=== PATIENT | male | born 1940 | race Caucasian/White ===

== ENCOUNTER → 2016-05-26 | Outpatient (CLI) | payer OTHER | LOC: BHFA 13:15 | PROVIDERS: ATTEND Internal Medicine Cardiovascular Disease | DX: I48.91 Unspecified atrial fibrillation (principal); I38 Endocarditis, valve unspecified; I10 Essential (primary) hypertension; I27.2 Other secondary pulmonary hypertension; I26.99 Other pulmonary embolism without acute cor pulmonale ==

== ENCOUNTER → 2016-07-08 | Outpatient (CLI) | payer OTHER | LOC: BHFA 14:45 | PROVIDERS: ATTEND Internal Medicine Interventional Cardiology | DX: I48.91 Unspecified atrial fibrillation (principal) ==

== ENCOUNTER 2016-07-27 13:11 | Emergency (ER) | payer OTHER ==
[2016-07-27 13:17] VITALS: TEMP 97.7
--- NOTE | 2016-07-27 13:23 | EDPHY ---
H & P Stated Complaint: in afib since last night/mild sob Time Seen by Provider: 07/27/16 13:20 - Personal History Current Tetanus/Diphtheria Vaccine: Yes - Medical/Surgical History Hx Asthma: No Hx Chronic Respiratory Disease: No Hx Diabetes: No Hx Cardiac Disease: Yes Hx Renal Disease: No Hx Cirrhosis: No Hx Alcoholism: No Hx HIV/AIDS: No Hx Splenectomy or Spleen Trauma: No Other PMH: afib/bladder cancer/neobladder - Social History Smoking Status: Former smoker Constitutional: Initial Vital Signs Temperature (C) 36.5 C 07/27/16 13:15 Heart Rate 90 07/27/16 13:15 Respiratory Rate 20 07/27/16 13:15 Blood Pressure 142/96 H 07/27/16 13:15 O2 Sat (%) 95 07/27/16 13:15 O2 Delivery Mode Room Air O2 (L/minute) 15 Allergies/Adverse Reactions: lisinopril Allergy (Verified 07/27/16 13:12) Itching Home Medications: Medication Instructions Recorded Aspirin 81mg (*) 07/27/16 Coreg 07/27/16 Fish Oil 07/27/16 Multaq 400 mg (*) 07/27/16 Norvasc 07/27/16 Valsartan 07/27/16 Medical Decision Making ED Course/Re-evaluation: CHIEF COMPLAINT: Atrial fibrillation last night HISTORY OF PRESENT ILLNESS: This patient is a 75 year old male with history of atrial fibrillation arriving today with his following a recurrent episode of afib onset last night around 1:00am, about 12 hours ago. He states has history of electrocardioversion for this, most recently 1-2 years ago. He states he played a full round of gold and had a "number of glasses of wine", a gin and tonic yesterday. He woke up early this morning "feeling funny" and a little short of breath. He stayed awake for about an hour to see if the feeling resolved, and was able to sleep fitfully the rest of the night. His checked his pulse and found it irregular. He called his cardiologists office, who suggested he take 400mg Multaq and follow up to the Emergency Department for symptoms unresolved by 13:00 today. He states these symptoms are similar to previous episodes of atrial fibrillation. He denies fever, chills, nausea, or other associated symptoms. He denies any traumatic precipitating event. He was previously on Eliquis following a provoked saddle PE, but discontinued it 1 month ago in favor of daily 81mg Aspirin. REVIEW OF SYSTEMS: A 10 point review of systems was performed and is negative with the exception of the elements mentioned in the history of present illness. PHYSICAL EXAM: HR, BP, O2 Sat, RR. Temp noted General Appearance: Alert, well hydrated, appropriate, and non-toxic appearing. Head: Atraumatic without scalp tenderness or obvious injury Eyes: Pupils equal, round, reactive to light and accommodation, EOMI, no trauma , no injection. Nose: Atraumatic, no rhinorrhea, clear. Throat: There is no erythema or exudates, no lesions, normal tonsils, mucus membranes moist. Neck: Supple, nontender, no lymphadenopathy. Respiratory: No retractions, no distress, no wheezes, and no accessory muscle use. Lungs are clear to auscultation bilaterally. Cardiovascular: Irregularly irregular heart rate. No murmurs, rubs, or gallops. Good capillary refill all extremities. Gastrointestinal: Abdomen is soft, nontender, non-distended, no masses, no rebound, no guarding, no peritoneal signs. Musculoskeletal: Normal active ROM of all extremities, atraumatic. Neurological: Alert, appropriate, and interactive. Non-focal neuro exam. Skin: No rashes, good turgor, no nodules on palpation. Past medical history: Prostate cancer, neobladder placement, atrial fibrillation status post electrocardioversion, idiopathic cardiomyopathy, pneumonia, hypertension Past surgical history: Nephrostomy exchange, neobladder placement Family history: Noncontributory. Social history: at bedside. Past medical history reviewed including admission from 12/28/10. DIAGNOSTICS/PROCEDURES/CRITICAL CARE TIME: 13:40 The 12 lead EKG was interpreted by myself. See hard copy and/or "tracemaster" electronic copy for interpretation. Atrial fibrillation, rate 106. 3:1 conversion. 14:10 Procedure: Conscious sedation. Indication: Cardioversion The patient is an appropriate candidate to tolerate procedural sedation. The patient's vitals signs and mental status are appropriate. The risks, benefits and alternatives of the sedation were discussed with the patient. The patient is ASA classification 1. The patient's Mallampati airway score was 1 and the patient did meet the 3-3-2 airway measurements. A time out was completed. The patient was sedated with 100mg IV Propofol. The patient was monitored with continuous pulse oximetry, monitor technician and end tidal CO2. There were no complications and no significant hypoxemia. I performed both the sedation and the procedure. The total time I spent at the bedside during the procedural sedation was 15 minutes. The patient was examined after the procedural sedation and has returned to their pre-sedation baseline with normal vital signs and a normal examination. 14:12 Procedure: Electrical Cardioversion. Indication: Dysrhythmia. Risks, benefits, alternatives discussed with the patient and consent obtained. The patient was on a continuous secured entrance monitor, with airway equipment at the bedside. The patient was on continuous pulse oximetry and passive CO2 monitor. The cardioversion was performed with 150 joules biphasic current. The cardioversion was successful. The patient tolerated the procedure well with no complications. The procedure was performed by myself. 14:15 The 12 lead EKG was interpreted by myself. See hard copy and/or "tracemaster" electronic copy for interpretation. Sinus rhythm, bradycardic rate 52. Critical care time spent by me, Dr. Gil, exclusively with this patient was 40 minutes, exclusive of PA time and exclusive of procedures. The organ system at risk was cardiovascular and we did electrocardioversion under conscious sedation to prevent worsening of the patients condition. DIFFERENTIAL DIAGNOSIS: The differential diagnosis for the patient's shortness of breath included but was not limited to myocardial infarction, atrial fibrillation, and pulmonary embolus. MEDICAL DECISION MAKING: This patient is a 75 year old male with history of atrial fibrillation. He presents with a 12 hour history of presumed atrial fibrillation. He has had three previous episodes of atrial fibrillation, which were corrected with electrocardioversion. He has taken 400mg PO Multaq at home today following consult with his cardiologists office, but continues in atrial fibrillation. Exam is largely unremarkable with the exception of irregularly irregular heartbeat. Vitals otherwise normal. 13:[address] Gunter, master steam yacht. He is aware of the patient's symptoms and recommends electrocardioversion. Patient does not require an echocardiogram because onset of symptoms clearly began 12 hours ago. He is under the time threshold for risk of blood clot and subsequent stroke. 14:12 Electrocardioversion performed under conscious sedation. Sinus rhythm regained, rate 52. Sinus bradycardia likely due to Multaq. We will not give additional medication to control heart rate since he has already taken 400mg PO Multaq. He will be discharged home in good condition. He is to follow up with his master steam yacht this week. Return precautions discussed. The patient and his are comfortable with this plan. - Data Points Laboratory Results: Laboratory Results 07/27/16 13:55 07/27/16 13:55 07/27/16 07/27/16 13:55 13:55 WBC 6.28 10^3/uL 10^3/uL (3.80-9.50) RBC 5.73 10^6/uL 10^6/uL (4.40-6.38) Hgb 18.0 g/dL H g/dL (13.7-17.5) Hct 52.4 % H % (40.0-51.0) MCV 91.4 fL fL (81.5-99.8) MCH 31.4 pg pg (27.9-34.1) MCHC 34.4 g/dL g/dL (32.4-36.7) RDW 12.4 % % (11.5-15.2) Plt Count 148 10^3/uL L 10^3/uL (150-400) MPV 11.3 fL fL (8.7-11.7) Neut % (Auto) 53.6 % % (39.3-74.2) Lymph % (Auto) 29.9 % % (15.0-45.0) [place] % (Auto) 14.0 % H % (4.5-13.0) Eos % (Auto) 1.6 % % (0.6-7.6) Baso % (Auto) 0.6 % % (0.3-1.7) Nucleat RBC Rel Count 0.0 % % (0.0-0.2) Absolute Neuts (auto) 3.36 10^3/uL 10^3/uL (1.70-6.50) Absolute Lymphs (auto) 1.88 10^3/uL 10^3/uL (1.00-3.00) Absolute Monos (auto) 0.88 10^3/uL H 10^3/uL (0.30-0.80) Absolute Eos (auto) 0.10 10^3/uL 10^3/uL (0.03-0.40) Absolute Basos (auto) 0.04 10^3/uL 10^3/uL (0.02-0.10) Absolute Nucleated RBC 0.00 10^3/uL 10^3/uL (0-0.01) Immature Gran % 0.3 % % (0.0-1.1) Immature Gran # 0.02 10^3/uL 10^3/uL (0.00-0.10) Sodium 140 mEq/L mEq/L (134-144) Potassium 4.8 mEq/L mEq/L (3.5-5.2) Chloride 107 mEq/L mEq/L (97-110) Carbon Dioxide 25 mEq/l mEq/l (22-31) Anion Gap 8 mEq/L mEq/L (8-16) BUN 23 mg/dL mg/dL (7-23) Creatinine 1.2 mg/dL mg/dL (0.7-1.3) Estimated GFR 59 Glucose 91 mg/dL mg/dL (70-100) Calcium 9.1 mg/dL mg/dL (8.5-10.4) Magnesium 2.1 mg/dL mg/dL (1.6-2.3) Troponin I < 0.012 ng/mL ng/mL (0-0.034) NT-Pro-B Natriuret Pep 1740 pg/mL H pg/mL (0-450) Departure - Departure Disposition: Home, Routine, Self-Care Clinical Impression: Atrial fibrillation Qualifiers: Atrial fibrillation type: paroxysmal Qualified Code(s): I48.0 - Paroxysmal atrial fibrillation Condition: Good Instructions: A-fib (Atrial Fibrillation) (ED) Additional Instructions: Follow up with your master steam yacht this week. Return to the ED for chest pain, shortness of breath, recurrence of symptoms, or any other worsening of condition. Be sure to continue your daily 81mg aspirin. Referrals: Daja Farris MD [Medical Doctor] - As per Instructions Report Scribed for: Sergey Gil Report Scribed by: Marcela Zuñiga Date of Report: 07/27/16 Time of Report: 15:49
--- NOTE | 2016-07-27 13:42 | CPEKG ---
Heart Rate: 106 RR Interval: 566 QRSD Interval: 88 QT Interval: 340 QTC Interval: 452 QRS [place]: -27 T Wave [place]: 41 EKG Severity - ABNORMAL ECG - EKG Impression: ATRIAL FIBRILLATION EKG Impression: BORDERLINE LEFT AXIS DEVIATION EKG Impression: CONSIDER ANTEROSEPTAL INFARCT Electronically Signed By: Anusha Clarke 27-Jul-2016 15:22:39
[2016-07-27] MEDS ORDERED: PROPOFOL 200 MG/20 ML VIAL ONE (13:57)
[2016-07-27 14:02] LABS: % IMMATURE GRANULYOCYTES 0.3 % (0.0-1.1); ABSOLUTE IMMATURE GRANULOCYTES 0.02 10^3/uL (0.00-0.10); ADD DIFF? NO; ADD MORPH? NO; ADD SCAN? NO; ATYPICAL LYMPHOCYTE FLAG 10 (0-99); FRAGMENT RBC FLAG 0 (0-99); HEMATOCRIT 52.4 % (40.0-51.0); LEFT SHIFT FLG 10 (0-99); LIPEMIA HEMOLYSIS FLAG 90 (0-99); MEAN CELL HEMOGLOBIN 31.4 pg (27.9-34.1); MEAN CELL HEMOGLOBIN CONCENTR. 34.4 g/dL (32.4-36.7); MEAN CELL VOLUME 91.4 fL (81.5-99.8); MEAN PLATELET VOLUME 11.3 fL (8.7-11.7); PLATELET CLUMPS FLAG 10 (0-99); PLATELET COUNT 148 10^3/uL (150-400); RED BLOOD CELL COUNT 5.73 10^6/uL (4.40-6.38); RED CELL DISTRIBUTION WIDTH 12.4 % (11.5-15.2)
[2016-07-27 14:15] LABS: ANION GAP 8 mEq/L (8-16); CALCIUM 9.1 mg/dL (8.5-10.4); CARBON DIOXIDE 25 mEq/l (22-31); CHLORIDE 107 mEq/L (97-110); CREATININE 1.2 mg/dL (0.7-1.3); GLOMERULAR FILTRATION RATE 59; GLUCOSE 91 mg/dL (70-100); MAGNESIUM 2.1 mg/dL (1.6-2.3); POTASSIUM 4.8 mEq/L (3.5-5.2); SODIUM 140 mEq/L (134-144)
--- NOTE | 2016-07-27 14:20 | CPEKG ---
Heart Rate: 52 RR Interval: 1154 P-R Interval: 188 QRSD Interval: 94 QT Interval: 432 QTC Interval: 402 P [place]: 59 QRS [place]: -26 T Wave [place]: 12 EKG Severity - ABNORMAL ECG - EKG Impression: SINUS RHYTHM EKG Impression: BORDERLINE LEFT AXIS DEVIATION EKG Impression: ABNRM R PROG, CONSIDER ASMI OR LEAD PLACEMENT Electronically Signed By: Anusha Clarke 27-Jul-2016 15:22:39
[2016-07-27 14:25] LABS: TROPONIN I < 0.012 ng/mL (0-0.034)
[2016-07-27 14:38] VITALS: BP 116/70; PULSE 52; RESP 16; O2SAT 94
== END 2016-07-27 14:43 | disposition home or self-care (01) ==
DX: I48.0 Paroxysmal atrial fibrillation (principal); I10 Essential (primary) hypertension; Z79.82 Long term (current) use of aspirin; Z85.51 Personal history of malignant neoplasm of bladder; Z87.891 Personal history of nicotine dependence
CPT/HCPCS: 92960; 93005; 99291; J2704

== ENCOUNTER → 2016-07-29 | Outpatient (CLI) | payer OTHER | LOC: BHFA 15:00 | PROVIDERS: ATTEND Internal Medicine Cardiovascular Disease | DX: I48.0 Paroxysmal atrial fibrillation (principal); I10 Essential (primary) hypertension ==

== ENCOUNTER 2016-12-22 09:10 | Day surgery (SDC) | payer OTHER ==
[2016-12-22] MEDS ORDERED: NS 500 ML IV ONE (09:15)
[2016-12-22] MEDS ORDERED: fentaNYL 100 MCG/2 ML INJ IVP ONE (09:15)
[2016-12-22] MEDS ORDERED: ATROPINE SULFATE 1 MG/10 ML SYR IVP ONE (09:15)
[2016-12-22] MEDS ORDERED: BENZOCAINE UNIT DOSE SPRAY HURRICAINE MM ONE (09:15)
[2016-12-22] MEDS ORDERED: MIDAZOLAM 2 MG/2 ML VIAL IVP ONE (09:15)
--- NOTE | 2016-12-22 09:28 | CPEKG ---
Heart Rate: 102 RR Interval: 588 QRSD Interval: 92 QT Interval: 352 QTC Interval: 459 QRS [place]: -27 T Wave [place]: 47 EKG Severity - ABNORMAL ECG - EKG Impression: ATRIAL FIBRILLATION, V-RATE 70-142 EKG Impression: BORDERLINE LEFT AXIS DEVIATION EKG Impression: ABNRM R PROG, CONSIDER ASMI OR LEAD PLACEMENT Preliminary Awaiting MD Review
[2016-12-22 09:53] LABS: INR 1.16 (0.83-1.16); PROTIME(PATIENT) 14.8 SEC (12.0-15.0)
[2016-12-22 09:54] LABS: APTT 30.3 SEC (23.0-38.0)
[2016-12-22] MEDS ORDERED: PROPOFOL 200 MG/20 ML VIAL ONE (10:04)
[2016-12-22 10:06] LABS: ANION GAP 11 mEq/L (8-16); CALCIUM 9.2 mg/dL (8.5-10.4); CARBON DIOXIDE 23 mEq/l (22-31); CHLORIDE 109 mEq/L (97-110); CREATININE 1.3 mg/dL (0.7-1.3); GLOMERULAR FILTRATION RATE 53; GLUCOSE 106 mg/dL (70-100); POTASSIUM 4.7 mEq/L (3.5-5.2); SODIUM 143 mEq/L (134-144)
--- NOTE | 2016-12-22 10:21 | PDANEPAE ---
ANE History of Present Illness KEERTHI/CV A-fib ANE Past Medical History - Cardiovascular History Hx Hypertension: Yes Hx Arrhythmias: Yes Hx Coronary Artery / Peripheral Vascular Disease: No Hx CHF / Valvular Disease: No Cardiovascular History Comment: AFIB 3X CARDIOVERSION WORKS- HAD CARDIOVERSION LAST WEEK AT [facility] WILL REQUEST RECORDS HAPPENS WITH INFECTIONS - Pulmonary History Hx COPD: No Hx Asthma/Reactive Airway Disease: No Hx Recent Upper Respiratory Infection: No Hx Oxygen in Use at Home: No Hx Sleep Apnea: No - Neurologic History Hx Cerebrovascular Accident: No Hx Seizures: No Hx Dementia: No - Endocrine History Hx Diabetes: No Hypothyroid: No Hyperthyroid: No - Renal History Hx Renal Disorders: Yes Renal History Comment: BLADDER CA. HX OF BLADDER INFECTION LEADING TO SEPSIS- CURRENTLY ON ABX - Liver History Hx Hepatic Disorders: No - Neurological & Psychiatric Hx Hx Neurological and Psychiatric Disorders: No - Cancer History Hx Cancer: Yes Cancer History Comment: BLADDER CA IN 2010 - Congenital Disorder History Hx Congenital Disorders: No - GI History Hx Gastrointestinal Disorders: Yes Gastrointestinal History Comment: DIVERTICULOSIS - Other Health History Other Health History: PICC LINE IN [facility] CURRENTLY RECIEVING IV ABX - Chronic Pain History Chronic Pain: No - Surgical History Prior Surgeries: CYSTOSCOPY 2010. CARDIOVERSION 2010. CARDIOVERSION JULY 2013. LAP TRE 02/2012 ANE Review of Systems Review of Systems: - Exercise capacity METS (RN): 3 METS ANE Patient History - Allergies Allergies/Adverse Reactions: lisinopril Allergy (Verified 07/27/16 13:12) Itching - Home Medications Home Medications: Aspirin 81mg (*) 07/27/16 [Last Taken 1 Day Ago ~12/21/16] Coreg 07/27/16 [Last Taken 12/22/16] Fish Oil 07/27/16 [Last Taken Unknown] Multaq 400 mg (*) 07/27/16 [Last Taken Unknown] Norvasc 07/27/16 [Last Taken 12/22/16] Valsartan 07/27/16 [Last Taken 1 Day Ago ~12/21/16] Eliquis 5 mg PO BID 12/22/16 [Last Taken 12/22/16] - Anes Hx Anes Hx: no prior problems - Smoking Hx Smoking Status: Former smoker (Two daily) - Alcohol Use Alcohol Use: Other - Family Anes Hx Family Hx Anesthesia Complications: NONE ANE Labs/Vital Signs - Labs Result Diagrams: 12/22/16 09:30 - Vital Signs Height: 185.42 cm Weight: 89.358 kg ANE Physical Exam - Airway Neck exam: decreased ROM Mallampati Score: Class 3 Mouth exam: normal dental/mouth exam - Pulmonary Pulmonary: no respiratory distress - Cardiovascular Cardiovascular: irregularly irregular - ASA Status ASA Status: III ANE Anesthesia Plan Anesthesia Plan: MAC Total IV Anesthesia: Yes
--- NOTE | 2016-12-22 10:27 | PDHPUP ---
History & Physical Update H&P update statement: This history and physical update is based on an assessment of the patient which was completed after admission or registration (within 24 hours), but prior to the surgery/procedure. H&P update: H&P reviewed & patient examined, no change in patient's condition since H&P completed
--- NOTE | 2016-12-22 10:52 | CPEKG ---
Heart Rate: 64 RR Interval: 938 P-R Interval: 174 QRSD Interval: 100 QT Interval: 428 QTC Interval: 442 P [place]: 0 QRS [place]: -30 T Wave [place]: 24 EKG Severity - ABNORMAL ECG - EKG Impression: SINUS RHYTHM EKG Impression: LEFT AXIS DEVIATION EKG Impression: ABNRM R PROG, CONSIDER ASMI OR LEAD PLACEMENT Preliminary Awaiting MD Review
--- NOTE | 2016-12-22 11:21 | PDTEE1 ---
KEERTHI Cardioversion Procedure Procedure: electrical cardioversion, transesophageal echo Indications: atrial fibrillation Consent: signed and in chart Anticoagulation: eliquis Procedural Details: Pads were placed in anterior-posterior position. KEERTHI probe was advanced and standard images obtained. There is no evidence of left atrial or left atrial appendage thrombus. Synchronized cardioversion attempt #1: 200J Results: normal sinus rhythm Conclusions: successful KEERTHI cardioversion Patient Problems: Problems Problem Status Onset Atrial fibrillation Acute
--- NOTE | 2016-12-22 12:04 | ECHO ---
[email or web address] [address] [address] Main: [phone] Fax: Transesophageal Echocardiography Name: BRANDY TYLER MR#: [id number] Study Date: 12/22/2016 Study Time: 10:17 AM Date of : 1940 Age: 76 year(s) Height: ( ) Weight: ( ) BSA: Gender: Male Examination: KEERTHI Indication: pre-cardioversion; r/o clot Image Quality: Adequate Contrast: I.V. dose of agitated saline Requested by: Edwar Ugarte Heart Rate: Rhythm: Atrial fibrillation BP: / Procedure Staff Slag Expander: Angela Bland Physician: Edwar Ugarte Requesting Provider: KEERTHI Exam Details Contrast: I.V. dose of agitated saline Conclusions: Moderate left atrial enlargment. No thrombus identified. No contra-indications to cardioversion identified. Measurements: Chambers Valvular Assessment AV/MV Valvular Assessment TV/PV Normal Normal Normal Name Value Range Name Value Range Name Value Range Additional Measurements: Additional Vessels Name Value Ao Ascendin.7 cm Findings: Left Ventricle: Normal size left ventricle. Mildly reduced systolic LV function. Right Ventricle: Normal size right ventricle. Normal RV function. Left Atrium: The left atrium is moderately dilated. An agitated saline study was performed and was negative for Patient: BRANDY TYLER Study Date: 12/22/2016 Page 1 of 2 10:17 AM intracardiac shunting. Spontaneous contrast in the left atrium. No thrombus is noted in the left atrium. Left Atrial Appendage: No thrombus in left appendage. Spontaneous contrast is present in the left atrial appendage. Right Atrium: The right atrium is moderately dilated. Definite Chiari's network in right atrium. Mitral Valve: The mitral valve is normal in appearance. Mild mitral valve regurgitation is present. Aortic Valve: The aortic valve is tri-leaflet. Moderate aortic valve regurgitation is present. Tricuspid Valve: The tricuspid valve appears normal. Mild tricuspid regurgitation is present. Pulmonic Valve: The pulmonic valve is normal in appearance and function. Trivial pulmonic valve regurgitation. l1n (No Signature Object) Patient: BRANDY TYLER Study Date: 12/22/2016 Page 2 of 2 10:17 AM [id number]
== END 2016-12-22 11:51 | disposition home or self-care (01) ==
LOC: FCATH 09:10
PROVIDERS: ATTEND Internal Medicine Interventional Cardiology
PROC: B245ZZ4 Ultrasonography of Left Heart, Transesophageal (ICD-10-PCS; principal; 2016-12-22)
PROC: 5A2204Z Restoration of Cardiac Rhythm, Single (ICD-10-PCS; principal; 2016-12-22)
DX: I48.91 Unspecified atrial fibrillation (principal); I10 Essential (primary) hypertension; I38 Endocarditis, valve unspecified; R31.9 Hematuria, unspecified
CPT/HCPCS: J0461; J2704

== ENCOUNTER → 2017-01-16 | Outpatient (CLI) | payer OTHER | LOC: BHFA 14:00 | PROVIDERS: ATTEND Internal Medicine Cardiovascular Disease | DX: I48.91 Unspecified atrial fibrillation (principal) | CPT/HCPCS: 78452; 93017; A9500 ==

== ENCOUNTER 2017-06-17 06:33 | Day surgery (SDC) | payer OTHER ==
[2017-06-17] MEDS ORDERED: fentaNYL 100 MCG/2 ML INJ IVP ONE (06:37)
[2017-06-17] MEDS ORDERED: NS 500 ML IV ONE (06:37)
[2017-06-17] MEDS ORDERED: ATROPINE SULFATE 1 MG/10 ML SYR IVP ONE (06:37)
[2017-06-17] MEDS ORDERED: MIDAZOLAM 2 MG/2 ML VIAL IVP ONE (06:37)
--- NOTE | 2017-06-17 06:56 | CPEKG ---
Heart Rate: 103 RR Interval: 583 QRSD Interval: 94 QT Interval: 360 QTC Interval: 471 QRS [place]: -25 T Wave [place]: 48 EKG Severity - ABNORMAL ECG - EKG Impression: ATRIAL FIBRILLATION, V-RATE 64-106 EKG Impression: BORDERLINE LEFT AXIS DEVIATION EKG Impression: ABNRM R PROG, CONSIDER ASMI OR LEAD PLACEMENT Electronically Signed By: Bassam Philippe 17-Jun-2017 07:37:28
[2017-06-17 07:16] LABS: INR 1.1 (0.83-1.16); PROTIME(PATIENT) 14.4 SEC (12.0-15.0)
--- NOTE | 2017-06-17 08:11 | PDANEPAE ---
ANE History of Present Illness paroxysmal episodes of atrial fibrillation ANE Past Medical History - Cardiovascular History Hx Hypertension: Yes Hx Arrhythmias: Yes Hx Coronary Artery / Peripheral Vascular Disease: No Hx CHF / Valvular Disease: No Cardiovascular History Comment: AFIB 3X CARDIOVERSION WORKS- HAD CARDIOVERSION LAST WEEK AT [facility] WILL REQUEST RECORDS HAPPENS WITH INFECTIONS - Pulmonary History Hx COPD: No Hx Asthma/Reactive Airway Disease: No Hx Recent Upper Respiratory Infection: No Hx Oxygen in Use at Home: No Hx Sleep Apnea: No - Neurologic History Hx Cerebrovascular Accident: No Hx Seizures: No Hx Dementia: No - Endocrine History Hx Diabetes: No - Renal History Hx Renal Disorders: Yes Renal History Comment: BLADDER CA. HX OF BLADDER INFECTION LEADING TO SEPSIS- CURRENTLY ON ABX - Liver History Hx Hepatic Disorders: No - Neurological & Psychiatric Hx Hx Neurological and Psychiatric Disorders: No - Cancer History Hx Cancer: Yes Cancer History Comment: BLADDER CA IN 2010 - Congenital Disorder History Hx Congenital Disorders: No - GI History Hx Gastrointestinal Disorders: Yes Gastrointestinal History Comment: DIVERTICULOSIS - Other Health History Other Health History: PICC LINE IN [facility] CURRENTLY RECIEVING IV ABX - Chronic Pain History Chronic Pain: No - Surgical History Prior Surgeries: CYSTOSCOPY 2010. CARDIOVERSION 2010. CARDIOVERSION JULY 2013. LAP TRE 02/2012 ANE Review of Systems Review of Systems: ANE Patient History - Allergies Allergies/Adverse Reactions: lisinopril Allergy (Verified 07/27/16 13:12) Itching nitrofurazone Allergy (Verified 06/17/17 07:00) - Home Medications Home Medications: Coreg 07/27/16 [Last Taken 06/17/17 06:00] Fish Oil 07/27/16 [Last Taken 06/15/17 08:00] Norvasc 07/27/16 [Last Taken 06/17/17 06:00] Valsartan 07/27/16 [Last Taken 06/16/17 08:30] Eliquis 5 mg PO BID 12/22/16 [Last Taken 06/17/17 06:00] - Smoking Hx Smoking Status: Former smoker - Family Anes Hx Family Hx Anesthesia Complications: NONE ANE Labs/Vital Signs - Labs Result Diagrams: 06/17/17 07:05 - Vital Signs Height: 185.42 cm Weight: 87.543 kg ANE Physical Exam - Airway Neck exam: FROM, short neck Mallampati Score: Class 1 Mouth exam: normal dental/mouth exam - Pulmonary Pulmonary: no respiratory distress, no rales or rhonchi, clear to auscultation - Cardiovascular Cardiovascular: irregularly irregular - ASA Status ASA Status: III ANE Anesthesia Plan Anesthesia Plan: GA with mask
[2017-06-17] MEDS ORDERED: PROPOFOL 200 MG/20 ML VIAL ONE ×2 (08:12→08:13)
--- NOTE | 2017-06-17 08:55 | CPEKG ---
Heart Rate: 51 RR Interval: 1176 P-R Interval: 200 QRSD Interval: 92 QT Interval: 452 QTC Interval: 417 P [place]: 59 QRS [place]: -30 T Wave [place]: 11 EKG Severity - ABNORMAL ECG - EKG Impression: SINUS RHYTHM EKG Impression: LEFT AXIS DEVIATION EKG Impression: ABNRM R PROG, CONSIDER ASMI OR LEAD PLACEMENT Electronically Signed By: Bassam Philippe 17-Jun-2017 11:29:38
--- NOTE | 2017-06-17 08:55 | PDTEE1 ---
KEERTHI Cardioversion Procedure Procedure: electrical cardioversion, transesophageal echo Indications: atrial fibrillation Consent: signed and in chart Anticoagulation: eliquis Procedural Details: Sedation was provided by Dr. Maldonado. Pads were placed in anterior-posterior position. KEERTHI probe was advanced and standard images obtained. 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 He will be referred for a Watchman evaluation in the [facility] structural heart clinic. Patient Problems: Problems Problem Status Onset Atrial fibrillation Acute
[2017-06-17] MEDS ORDERED: NALOXONE HCL 0.4 MG/ML INJ IVP PRN (08:58)
--- NOTE | 2017-06-17 08:58 | POSTANESTH ---
Post Anesthetic Evaluation Cardiovascular Status: Normal, Stable Respiratory Status: Normal, Stable, Similar to Pre-op Cond. Level of Consciousness/Mental Status: Can Participate in Eval Pain Control: Adequate, Prn Tx Ordered Nausea/Vomiting Control: Adequate, Prn Tx Ordered Complications Possibly Related to Anesthesia: None Noted
--- NOTE | 2017-06-17 10:38 | ECHO ---
[email or web address] [address] [address] Main: [phone] Fax: Transesophageal Echocardiography Name: BRANDY TYLER MR#: [id number] Study Date: 06/17/2017 Study Time: 08:18 AM Date of : 1940 Age: 76 year(s) Height: ( ) Weight: ( ) BSA: Gender: Male Examination: KEERTHI Indication: Pre Cardioversion Image Quality: Contrast: Requested by: Daja Farris Heart Rate: Rhythm: BP: / Procedure Staff Surg Tech: Bhavin Georges RDCS Reading Physician: Daja Farris MD Requesting Provider: Dirk Oconnor KEERTHI Exam Details Conclusions: Normal global systolic LV function. An agitated saline study was performed and was negative for intracardiac shunting. Spontaneous contrast in the left atrium. Good color flow doppler in the left atrial appendage. No thrombus in left appendage. FLOR Measurements ([employer]) 0 degrees Width 15.5mm Length 24.6mm, 45 degrees Width 16.4 mm length 25.7mm, 90 degrees Width 12.1mm length 26.0mm, 135 degrees width 11.8mm length 19.0 mm. Mild mitral valve regurgitation is present. Mild aortic valve regurgitation is present. Proceed with cardioversion Measurements: Chambers Valvular Assessment AV/MV Valvular Assessment TV/PV Normal Normal Normal Name Value Range Name Value Range Name Value Range Additional Measurements: Findings: Left Ventricle: Normal global systolic LV function. Left Atrium: Patient: BRANDY TYLER Study Date: 06/17/2017 Page 1 of 2 08:18 AM An agitated saline study was performed and was negative for intracardiac shunting. Spontaneous contrast in the left atrium. Left Atrial Appendage: Good color flow doppler in the left atrial appendage. No thrombus in left appendage. Spontaneous contrast is present in the left atrial appendage. FLOR Measurements (Watchman) 0 degrees Width 15.5mm Length 24.6mm, 45 degrees Width 16.4 mm length 25.7mm, 90 degrees Width 12.1mm length 26.0mm, 135 degrees width 11.8mm length 19.0 mm. Right Atrium: The right atrium is normal in size. Mitral Valve: The mitral valve is normal in appearance and function. Mild mitral valve regurgitation is present. Aortic Valve: The aortic valve is tri-leaflet. Mild aortic valve regurgitation is present. Tricuspid Valve: Trivial tricuspid valve regurgitation. Pulmonic Valve: The pulmonic valve is normal in appearance and function. Aorta: The aorta is normal. Pericardium: No pericardial effusion. l1n (No Signature Object) Patient: BRANDY TYLER Study Date: 06/17/2017 Page 2 of 2 08:18 AM [id number]
== END 2017-06-17 13:00 | disposition home or self-care (01) ==
LOC: FCATH 06:33
PROVIDERS: ATTEND Internal Medicine Cardiovascular Disease
PROC: 5A2204Z Restoration of Cardiac Rhythm, Single (ICD-10-PCS; principal; 2017-06-17)
PROC: B245ZZ4 Ultrasonography of Left Heart, Transesophageal (ICD-10-PCS; principal; 2017-06-17)
DX: I48.1 Persistent atrial fibrillation (principal); Z79.01 Long term (current) use of anticoagulants; R31.0 Gross hematuria; Z85.51 Personal history of malignant neoplasm of bladder; Z90.6 Acquired absence of other parts of urinary tract
CPT/HCPCS: J0461; J2250; J2704

== ENCOUNTER 2017-08-12 08:44 | Inpatient (IN) | payer OTHER ==
--- NOTE | 2017-08-12 11:15 | CPEKG ---
Heart Rate: 119 RR Interval: 504 QRSD Interval: 90 QT Interval: 336 QTC Interval: 473 QRS [place]: -21 T Wave [place]: 57 EKG Severity - ABNORMAL ECG - EKG Impression: ATRIAL FIBRILLATION WITH RAPID VENTRICULAR RESPONSE EKG Impression: BORDERLINE LEFT AXIS DEVIATION Electronically Signed By: Milton Hassan 12-Aug-2017 12:00:29
[2017-08-12 12:11] LABS: PLATELET COUNT 151 10^3/uL (150-400)
[2017-08-12 12:19] LABS: INR 1.02 (0.83-1.16); PROTIME(PATIENT) 13.6 SEC (12.0-15.0)
[2017-08-12] MEDS: SOTALOL HCL 80 MG TAB PO SCH ×2 (13:01→21:01)
--- NOTE | 2017-08-12 15:07 | CPEKG ---
Heart Rate: 80 RR Interval: 750 QRSD Interval: 86 QT Interval: 384 QTC Interval: 443 QRS [place]: -23 T Wave [place]: 22 EKG Severity - ABNORMAL ECG - EKG Impression: ATRIAL FIBRILLATION EKG Impression: BORDERLINE LEFT AXIS DEVIATION Electronically Signed By: Milton Hassan 12-Aug-2017 15:14:55
--- NOTE | 2017-08-12 15:57 | GHP ---
[f rep st] HISTORY AND PHYSICAL DATE OF ADMISSION: 08/12/2017 CHIEF COMPLAINT: Atrial fibrillation, need for sotalol load. HISTORY OF PRESENT ILLNESS: The patient is a 76-year-old male, well known to me from the outpatient setting. He has a history of paroxysmal atrial fibrillation and systemic hypertension. He has had s everal T-guided cardioversions over the past few years. He has also been evaluated for a left atrial appendage Watchman device, given his propensity for hematuria in the setting of his ureteral stent t hat requires frequent replacements. His last cardioversion was on June 17. He had been doing well and had been on Eliquis. On August 11, kim leonard had a colonoscopy for which he had to hold his Eliquis for 2 days. The evening of his colonoscopy, he went back into atrial fibrillation and is now being admitted electively for sotalol loading, give n his multiple failed cardioversions and recurrent symptomatic atrial fibrillation. He has received 1 dose of sotalol. He reports feeling fairly well with mild palpitations, but no ang batsheva or dyspnea. PAST MEDICAL HISTORY: 1. Paroxysmal atrial fibrillation. 2. Bladder cancer with ureteral stent. 3. Kidney stones. 4. Diverticulosis. 5. Hypertension. 6. Hematuria. 7. History of pulmonary embolism. 8. Pulmonary hypertension. 9. Valvular heart disease. ALLERGIES: Lisinopril and nitrofurantoin. OUTPATIENT MEDICATIONS: 1. Carvedilol 6.25 mg twice daily. 2. Amlodipine 5 mg daily. 3. Eliquis 5 mg twice daily. 4. Vitamin D3 herbal supplement. 5. Multivitamin. 6. Diovan 160 mg daily. 7. Ambien 5 mg at bedtime p.r.n. insomnia. SOCIAL HISTORY: The patient is . He does use alcohol on a regular basis. He does not smoke currently, but smoked in the past. FAMILY HISTORY: Not applicable to the current case. PHYSICAL EXAM: VITAL SIGNS: Blood pressure is 118/68, heart rate is 115 in atrial fibrillation, res piratory rate is 30, oxygen saturation 96% on room air. He is afebrile. GENERAL: Well-appearing ol [place] male in no acute distress. HEENT: Sclerae are clear and free of jaundice. Mucous membranes are moist. CARDIOVASCULAR: JVP is less than 10. Irregularly irregular rhythm without murmur, S3, or r ub. LUNGS: Clear to auscultation without wheezes, rhonchi or rales. EXTREMITIES: Warm, well perfu sed without cyanosis, clubbing, or edema. NEURO: Alert and oriented x3 without gross focal neurolog ic deficits. Appropriate mood and affect. LABORATORY DATA: White count is essentially normal except for hemoglobin that is slightly elevated a t 17.6. INR is 1.0. Sodium 141, potassium 4.7, chloride 110, bicarb 21, BUN 20, creatinine 1.2, and glucose of 102. Magnesium is 2. EKG reviewed by me shows atrial fibrillation with ventricular response of 119 beats per minute. QTcF is 422. ASSESSMENT AND PLAN: A 76-year-old male with recurrent paroxysmal atrial fibrillation and multiple p ast cardioversions. He is now admitted electively for sotalol loading. 1. Atrial fibrillation: Sotalol per protocol. Continue surveillance EKGs, follow renal function an d magnesium. Stop Coreg. Continue Eliquis for CHADS2-VASc score of 3. If he is not converted with s otalol by this 4th dose, will perform cardioversion. Would favor KEERTHI-guided cardioversion given that he had to his Eliquis for 2 days prior to his colonoscopy, although clinically has had not had atria l fibrillation until yesterday evening, and now is back on Eliquis. 2. Hypertension: Continue outpatient medical therapy with Norvasc and Diovan. May need to increase Diovan now that he will be off Coreg. 3. Valvular heart disease: This will be followed by serial outpatient echocardiograms. 4. Hematuria: This has been mild and ongoing. His urologist is aware of this. Patient will require at least 2 midnight stay given initiation of antiarrhythmic drug therapy with so talol. Therefore, he is inpatient status. Code status is full. /[id number]/MODL
[2017-08-12] MEDS: APIXABAN 5 MG TAB PO SCH (21:01)
[2017-08-12] MEDS: ZOLPIDEM TARTRATE 5 MG TAB PO PRN (21:55)
--- NOTE | 2017-08-12 23:01 | CPEKG ---
Heart Rate: 89 RR Interval: 674 QRSD Interval: 88 QT Interval: 396 QTC Interval: 482 QRS [place]: -22 T Wave [place]: 49 EKG Severity - ABNORMAL ECG - EKG Impression: ATRIAL FIBRILLATION, V-RATE 60-112 EKG Impression: BORDERLINE LEFT AXIS DEVIATION EKG Impression: PROBABLE ANTEROSEPTAL INFARCT, OLD EKG Impression: BORDERLINE PROLONGED QT INTERVAL Electronically Signed By: Gabriella Black 13-Aug-2017 05:10:08
[2017-08-13 05:10] LABS: INR 1.12 (0.83-1.16); PROTIME(PATIENT) 14.6 SEC (12.0-15.0)
[2017-08-13] MEDS: CHOLECALCIFEROL VIT D3 1,000 UNITS TAB PO SCH (08:06)
[2017-08-13] MEDS: amLODIPine BESYLATE 5 MG TAB PO SCH (08:06)
[2017-08-13] MEDS: VALSARTAN 160 MG TAB PO SCH (08:06)
[2017-08-13] MEDS: MULTIVITAMINS W-MINERALS 1 EACH TAB PO SCH (08:06)
[2017-08-13] MEDS: APIXABAN 5 MG TAB PO SCH ×2 (08:06→21:16)
[2017-08-13] MEDS: SOTALOL HCL 80 MG TAB PO SCH ×2 (09:34→21:15)
--- NOTE | 2017-08-13 11:26 | PDCARPN ---
Cardiology Progress Note Assessment/Plan: Assessment/plan: 76-year-old male with paroxysmal atrial fibrillation status post multiple KEERTHI guided cardioversions. He is now admitted for sotalol loading for recurrent atrial fibrillation. Sotalol has improved his ventricular response. Coreg has been stopped. He is on Eliquis for CHADS2 Vasc score of 3. 1. Atrial fibrillation: QT and electrolytes as well as renal function have been stable. He is due for 1 more loading dose of sotalol. If he is not in sinus rhythm tomorrow morning, we will plan on KEERTHI guided cardioversion. He does require a KEERTHI as he did have interruption Eliquis therapy for a recent colonoscopy. 2. Hypertension: Well controlled here. We will have to follow this closely because Coreg has been discontinued. May need increase in Diovan. 3. Valvular heart disease with mild mitral regurgitation mild aortic regurgitation: Stable 4. History of bladder cancer with ureteral stent that needs changing every several weeks with Dr. Ortega. He does have ongoing and mild hematuria related to Eliquis. His urologist is aware of this and cleared him to continue anticoagulation. 08/13/17 11:27 Subjective: He feels well. With rate control his palpitations have improved. No angina, dyspnea or presyncope. Reviewed/Discussed With: family Objective: Vital Signs (8 Hrs) Temp Pulse Resp BP Pulse Ox 08/13/17 07:55 36.4 C 98 22 H 133/89 H 95 08/13/17 04:00 36.9 C 85 16 127/75 H 95 Intake/Output (24 Hrs) 08/12/17 08/13/17 08/14/17 05:59 05:59 05:59 Intake Total 850 Balance 850 Intake: Oral (ml) 850 IV Intake (ml) 0 Other: Weight 88.3 kg Number of Stools Toilet 1 No acute distress. Irregular regular rhythm. No murmur, S3 or rub. Lungs clear to auscultation bilaterally No lower extremity edema Result Diagrams: 08/12/17 12:00 08/13/17 04:30 EKG: Reviewed: Atrial fibrillation with controlled ventricular response. QTCf is within normal limits. Telemetry: Atrial fibrillation with controlled ventricular response. Occasional PVCs. ICD10 Worksheet Patient Problems: Problems Problem Status Onset Atrial fibrillation Acute
--- NOTE | 2017-08-13 11:40 | CPEKG ---
Heart Rate: 78 RR Interval: 769 QRSD Interval: 94 QT Interval: 412 QTC Interval: 470 QRS [place]: 10 T Wave [place]: 53 EKG Severity - ABNORMAL ECG - EKG Impression: ATRIAL FIBRILLATION EKG Impression: ABNRM R PROG, CONSIDER ASMI OR LEAD PLACEMENT Electronically Signed By: Milton Hassan 13-Aug-2017 13:56:04
--- NOTE | 2017-08-13 14:52 | ASMTCMCOM ---
CM Note CM Note Notes: Chart reviewed. Patient is a very pleasant 76 year old male admitted for Sotolol therapy for atrial fib. He shares with me that he and his life in [place] and enjoy helping to care for 10 grandchildren. Patient states they manage fine independently and have no needs. No current needs identifed.CM available should needs arise. Plan: home Independently. Date Signed: 08/13/2017 02:52 PM Electronically Signed By:Ana Tirado RN
--- NOTE | 2017-08-13 15:01 | PDMN ---
Medical Necessity Medical necessity: los>2mn for recurrent paroxysmal afib; admit for initiation of antiarrhythmic drug therapy with sotalol, serial ECG's and monitor renal function and Mg; possible cardioversion if not converted by 4th dose; comorbid bladder ca with mild and ongoing hematuria, htn and valvular heart disease, hx PE; per order and H&P 06/13/17
[2017-08-13] MEDS: ZOLPIDEM TARTRATE 5 MG TAB PO PRN (22:32)
--- NOTE | 2017-08-13 23:15 | CPEKG ---
Heart Rate: 84 RR Interval: 714 QRSD Interval: 96 QT Interval: 428 QTC Interval: 507 QRS [place]: -25 T Wave [place]: 48 EKG Severity - ABNORMAL ECG - EKG Impression: ATRIAL FIBRILLATION EKG Impression: BORDERLINE LEFT AXIS DEVIATION Electronically Signed By: Milton Hassan 14-Aug-2017 07:35:36
[2017-08-14 04:24] LABS: INR 1.12 (0.83-1.16); PROTIME(PATIENT) 14.6 SEC (12.0-15.0)
[2017-08-14] MEDS ORDERED: ATROPINE SULFATE 1 MG/10 ML SYR IVP ONE (06:00)
[2017-08-14] MEDS ORDERED: NS 1,000 ML IV ONE (06:00)
[2017-08-14] MEDS: APIXABAN 5 MG TAB PO SCH (08:53)
[2017-08-14] MEDS: amLODIPine BESYLATE 5 MG TAB PO SCH (08:53)
[2017-08-14] MEDS: CHOLECALCIFEROL VIT D3 1,000 UNITS TAB PO SCH (08:53)
[2017-08-14] MEDS: VALSARTAN 160 MG TAB PO SCH (08:53)
[2017-08-14] MEDS: MULTIVITAMINS W-MINERALS 1 EACH TAB PO SCH (08:56)
[2017-08-14] MEDS ORDERED: SOTALOL HCL 80 MG TAB PO SCH (09:00)
--- NOTE | 2017-08-14 10:58 | CPEKG ---
Heart Rate: 104 RR Interval: 577 QRSD Interval: 90 QT Interval: 380 QTC Interval: 500 QRS [place]: -21 T Wave [place]: -15 EKG Severity - ABNORMAL ECG - EKG Impression: ATRIAL FIBRILLATION EKG Impression: BORDERLINE LEFT AXIS DEVIATION EKG Impression: ABNRM R PROG, CONSIDER ASMI OR LEAD PLACEMENT EKG Impression: BORDERLINE T ABNORMALITIES, INFERIOR LEADS Electronically Signed By: Milton Hassan 14-Aug-2017 12:57:37
[2017-08-14 11:49] VITALS: BP 119/84
--- NOTE | 2017-08-14 13:48 | PDANEPAE ---
ANE History of Present Illness 76 year old with AF ANE Past Medical History - Cardiovascular History Hx Hypertension: Yes Hx Arrhythmias: Yes Hx Coronary Artery / Peripheral Vascular Disease: No Hx CHF / Valvular Disease: No Cardiovascular History Comment: AFIB 3X CARDIOVERSION WORKS- HAD CARDIOVERSION LAST WEEK AT [facility] WILL REQUEST RECORDS HAPPENS WITH INFECTIONS - Pulmonary History Hx COPD: No Hx Asthma/Reactive Airway Disease: No Hx Recent Upper Respiratory Infection: No Hx Oxygen in Use at Home: No Hx Sleep Apnea: No - Neurologic History Hx Cerebrovascular Accident: No Hx Seizures: No Hx Dementia: No - Endocrine History Hx Diabetes: No - Renal History Hx Renal Disorders: Yes Renal History Comment: BLADDER CA. HX OF BLADDER INFECTION LEADING TO SEPSIS- CURRENTLY ON ABX - Liver History Hx Hepatic Disorders: No - Neurological & Psychiatric Hx Hx Neurological and Psychiatric Disorders: No - Cancer History Hx Cancer: Yes Cancer History Comment: BLADDER CA IN 2010 - Congenital Disorder History Hx Congenital Disorders: No - GI History Hx Gastrointestinal Disorders: Yes Gastrointestinal History Comment: DIVERTICULOSIS - Other Health History Other Health History: PICC LINE IN [facility] [place] CURRENTLY RECIEVING IV ABX - Chronic Pain History Chronic Pain: No - Surgical History Prior Surgeries: CYSTOSCOPY 2010. CARDIOVERSION 2010. CARDIOVERSION JULY 2013. LAP TRE 02/2012 ANE Review of Systems Review of systems is: negative Review of Systems: ANE Patient History - Allergies Allergies/Adverse Reactions: lisinopril Allergy (Verified 07/27/16 13:12) Itching nitrofurazone Allergy (Verified 08/12/17 13:15) Fever - Home Medications Home medications: home medication list seen and reviewed Home Medications: Carvedilol [Coreg (*)] 6.25 mg PO BID #0 07/27/16 [Last Taken 08/12/17] Valsartan [Diovan (*)] 160 mg PO DAILY #0 07/27/16 [Last Taken 08/12/17] amLODIPine BESYLATE [Norvasc 5 mg (*)] 5 mg PO DAILY #0 07/27/16 [Last Taken ] Apixaban [Eliquis] 5 mg PO BID #0 12/22/16 [Last Taken 08/12/17] Cholecalciferol Vit D3 [Vitamin D3 (*)] 1,000 units PO DAILY 08/12/17 [Last Taken Unknown] Herbals/Supplements -Info Only 1 ea PO DAILY 08/12/17 [Last Taken Unknown] Multivitamins W-Minerals [Thera M Plus Tablet (*)] 1 each PO DAILY 08/12/17 [ Last Taken Unknown] Zolpidem Tartrate [Ambien 5MG (*)] 5 mg PO HS PRN 08/12/17 [Last Taken Unknown] - NPO status NPO Status: no food or drink >8 hours - Smoking Hx Smoking Status: Former smoker - Family Anes Hx Family Hx Anesthesia Complications: NONE ANE Labs/Vital Signs - Labs Result Diagrams: 08/12/17 12:00 08/14/17 03:43 - Vital Signs Blood Pressure: 119/84 Heart Rate: 91 Respiratory Rate: 15 O2 Sat (%): 95 Height: 185.42 cm Weight: 88.3 kg ANE Physical Exam - Airway Neck exam: FROM Mallampati Score: Class 2 Mouth exam: normal dental/mouth exam - Pulmonary Pulmonary: no respiratory distress - Cardiovascular Cardiovascular: regular rate and rhythym - ASA Status ASA Status: II ANE Anesthesia Plan Anesthesia Plan: MAC Total IV Anesthesia: Yes
[2017-08-14] MEDS ORDERED: ATROPINE SULFATE 1 MG/10 ML SYR ONE (14:00)
[2017-08-14] MEDS ORDERED: fentaNYL 100 MCG/2 ML INJ ONE (14:00)
[2017-08-14] MEDS ORDERED: PROPOFOL 200 MG/20 ML VIAL ONE (14:00)
--- NOTE | 2017-08-14 14:18 | PDTEE1 ---
KEERTHI Cardioversion Procedure Procedure: electrical cardioversion, transesophageal echo Indications: atrial fibrillation Consent: signed and in chart Anticoagulation: eliquis Procedural Details: Sedation provided by Dr. Gay. Pads were placed in anterior-posterior position. KEERTHI probe was advanced and standard images obtained. There is no evidence of left atrial or left atrial appendage thrombus. Synchronized cardioversion attempt #1: 200J Results: other (Sinus bradycardia) Conclusions: successful KEERTHI cardioversion Patient Problems: Problems Problem Status Onset Atrial fibrillation Acute
--- NOTE | 2017-08-14 14:22 | CPEKG ---
Heart Rate: 41 RR Interval: 1463 P-R Interval: 196 QRSD Interval: 98 QT Interval: 488 QTC Interval: 403 P [place]: 59 QRS [place]: -29 T Wave [place]: 14 EKG Severity - ABNORMAL ECG - EKG Impression: SINUS BRADYCARDIA EKG Impression: LEFT ATRIAL ENLARGEMENT EKG Impression: BORDERLINE LEFT AXIS DEVIATION EKG Impression: ABNRM R PROG, CONSIDER ASMI OR LEAD PLACEMENT Electronically Signed By: Milton Hassan 15-Aug-2017 04:13:43
--- NOTE | 2017-08-14 14:25 | POSTANESTH ---
Post Anesthetic Evaluation Cardiovascular Status: Normal, Stable Respiratory Status: Normal, Stable Level of Consciousness/Mental Status: Can Participate in Eval Pain Control: Adequate, Prn Tx Ordered Nausea/Vomiting Control: Adequate, Prn Tx Ordered Complications Possibly Related to Anesthesia: None Noted
--- NOTE | 2017-08-14 14:28 | ASMTLACE ---
LACE Length of stay for Answers: 1 day current admission Acuity / Level of Answers: Yes Care: Did the patient have an inpatient admission? Comorbidities - select Answers: Any tumor (including all that apply lymphoma or leukemia) Other Notes: afib, HTN, diverticulos is, h/o PE, valvular heart disease # of Emergency department Answers: 0 visits in the last 6 months Score: 7 Date Signed: 08/14/2017 02:28 PM Electronically Signed By:Ana Tirado RN
--- NOTE | 2017-08-14 14:30 | ASMTCMCOM ---
CM Note CM Note Notes: Patient medically cleared for discharge to home. No needs identified CM available should needs arise. Plan: Home Independently. Date Signed: 08/14/2017 02:29 PM Electronically Signed By:Ana Tirado RN
--- NOTE | 2017-08-14 16:43 | GDS ---
[f rep st] DISCHARGE SUMMARY ADMISSION DIAGNOSES: 1. Paroxysmal atrial fibrillation status post multiple cardioversions and now need for sotalol loadi ng. 2. Hypertension. 3. Valvular heart disease with mild mitral, mild tricuspid regurgitation. 4. Bladder cancer with ureteral stent. DISCHARGE DIAGNOSES: 1. Atrial fibrillation, status post sotalol loading and successful transesophageal echocardiogram-gu ided cardioversion. 2. Hypertension. 3. Bladder cancer with history of urethral stent. 4. Valvular heart disease. PROCEDURES DURING HOSPITALIZATION: 1. EKGs for monitoring during sotalol initiation. 2. KEERTHI-guided cardioversion. HOSPITAL COURSE: The patient is a 76-year-old male with a long history of paroxysmal atrial fibrilla tion. He has had several KEERTHI-guided cardioversions over the past 3 years. He has also been evaluate d for left atrial appendage Watchman device given his propensity for hematuria in the setting of his ureteral stent that requires frequent replacements. At this point, he does not wish to have Watchman device. He went back into atrial fibrillation the evening after colonoscopy, August 11. He was therefore elec tively admitted on August 12 for sotalol initiation. This went without complication and his QTC inter areli remained below 480. He was slightly bradycardic and therefore his sotalol dose was decreased to 80 mg twice daily. He had no symptoms while in the hospital. Because the sotalol did not chemically convert him to normal sinus rhythm, he had a KEERTHI-guided cardio version on August 14. This converted him to sinus bradycardia. DISCHARGE PHYSICAL EXAM: GENERAL: No acute distress. CARDIAC: Pre-cardioversion exam showed irreg ularly irregular rhythm without murmur, S3, or rub. LUNGS: Clear to auscultation bilaterally withou t wheezes, rhonchi or rales. EXTREMITIES: Warm without edema. LABORATORY DATA: CBC was normal on admission. INR 1.12. Basic metabolic panel normal except for a BUN of 28. Magnesium has been normal. DISCHARGE MEDICATIONS: Please see medication reconciliation: His Coreg has been stopped. Sotalol 8 0 mg twice daily will be new medication. Otherwise, he will continue his Norvasc 5 mg daily, Eliquis 5 mg twice daily without interruption, and valsartan 160 mg. oHmer cason. DISCHARGE INSTRUCTIONS: 1. No driving for 24 hours as he received sedation for his KEERTHI-guided cardioversion. 2. Follow up with Dr. Farris or Shayne Zavala in 1 week with EKG. 3. Call for palpitations, chest pain or dyspnea. /[id number]/MODL
--- NOTE | 2017-08-14 16:52 | ECHO ---
[email or web address] [address] [address] Main: [phone] Fax: Transesophageal Echocardiography Name: BRANDY TYLER MR#: [id number] Study Date: 08/14/2017 Study Time: 01:47 PM Date of : 1940 Age: 76 year(s) Height: ( ) Weight: ( ) BSA: Gender: Male Examination: KEERTHI Indication: atrial fibrillation; pre-cardioversion Image Quality: Contrast: Requested by: Daja Farris Heart Rate: Rhythm: BP: / Procedure Staff Medical Social Worker: Angela Amin [facility] Reading Physician: Daja Farris MD Requesting Provider: KEERTHI Exam Details Conclusions: Normal global systolic LV function. The ejection fraction is visually estimated to be 55 %. No left atrial appendage thrombus. Good color flow doppler in the left atrial appendage. Mild mitral valve regurgitation is present. Mild aortic valve regurgitation is present. Mild tricuspid regurgitation is present. proceed with cardioversion Measurements: Chambers Valvular Assessment AV/MV Valvular Assessment TV/PV Normal Normal Normal Name Value Range Name Value Range Name Value Range Visual EF: 55 % Additional Measurements: Additional Vessels Name Value Ao Ascendin.6 cm Patient: BRANDY TYLER Study Date: 08/14/2017 Page 1 of 2 01:47 PM Findings: Left Ventricle: Normal global systolic LV function. The ejection fraction is visually estimated to be 55 %. Left Atrium: No left atrial appendage thrombus. Left Atrial Appendage: Good color flow doppler in the left atrial appendage. Normal PW-Doppler flow pattern. No thrombus in left appendage. Spontaneous contrast is present in the left atrial appendage. Mitral Valve: The mitral valve is normal in appearance and function. Mild mitral valve regurgitation is present. Aortic Valve: The aortic valve is tri-leaflet. Mild aortic valve regurgitation is present. Tricuspid Valve: Mild tricuspid regurgitation is present. Pulmonic Valve: Mild pulmonic valve regurgitation is noted. l1n (No Signature Object) Patient: BRANDY TYLER Study Date: 08/14/2017 Page 2 of 2 01:47 PM [id number]
== END 2017-08-14 15:35 | disposition home or self-care (01) | DRG 310 ==
LOC: UNDOADMIN 10:48 → F2W 10:48
PROVIDERS: ADMIT Internal Medicine Cardiovascular Disease; ATTEND Internal Medicine Cardiovascular Disease
PROC: 5A2204Z Restoration of Cardiac Rhythm, Single (ICD-10-PCS; principal; 2017-08-14)
PROC: B245ZZ4 Ultrasonography of Left Heart, Transesophageal (ICD-10-PCS; principal; 2017-08-14)
DX: I48.0 Paroxysmal atrial fibrillation (principal); I10 Essential (primary) hypertension; I08.1 Rheumatic disorders of both mitral and tricuspid valves; R31.9 Hematuria, unspecified; Z79.01 Long term (current) use of anticoagulants; Z85.51 Personal history of malignant neoplasm of bladder; Z90.6 Acquired absence of other parts of urinary tract; Z96.0 Presence of urogenital implants; Z86.711 Personal history of pulmonary embolism
CPT/HCPCS: J0461; J2704; J3010

== ENCOUNTER → 2017-08-17 | Outpatient (CLI) | payer OTHER | LOC: BHFA 13:00 | PROVIDERS: ATTEND Internal Medicine Cardiovascular Disease | DX: I48.91 Unspecified atrial fibrillation (principal); I10 Essential (primary) hypertension; I38 Endocarditis, valve unspecified; R31.9 Hematuria, unspecified ==

== ENCOUNTER → 2017-12-18 | Outpatient (CLI) | payer OTHER | LOC: BHCLAF 14:00 | PROVIDERS: ATTEND Internal Medicine Cardiovascular Disease | DX: I48.91 Unspecified atrial fibrillation (principal) | CPT/HCPCS: 93005-PO ==

== ENCOUNTER 2017-12-21 15:01 | Day surgery (SDC) | payer OTHER ==
[2017-12-21] MEDS ORDERED: NS 500 ML IV ONE (15:03)
[2017-12-21] MEDS ORDERED: MIDAZOLAM 2 MG/2 ML VIAL IVP ONE (15:03)
[2017-12-21] MEDS ORDERED: ATROPINE SULFATE 1 MG/10 ML SYR IVP ONE (15:03)
[2017-12-21] MEDS ORDERED: fentaNYL 100 MCG/2 ML INJ IVP ONE (15:03)
[2017-12-21] MEDS ORDERED: LIDOCAINE 1% 5 ML SDV ONE (15:35)
[2017-12-21] MEDS ORDERED: PROPOFOL 200 MG/20 ML VIAL ONE (15:35)
[2017-12-21] MEDS ORDERED: NALOXONE HCL 0.4 MG/ML INJ IVP PRN (15:45)
--- NOTE | 2017-12-21 15:45 | PDANEPAE ---
ANE History of Present Illness 77 year old male in A-fib for cardioversion. History of HTN, Pulm HTN, Bladder CA and PE. ANE Past Medical History - Cardiovascular History Hx Hypertension: Yes Hx Arrhythmias: Yes Hx Coronary Artery / Peripheral Vascular Disease: No Hx CHF / Valvular Disease: No Cardiovascular History Comment: AFIB 3X CARDIOVERSION WORKS- HAD CARDIOVERSION LAST WEEK AT [facility] WILL REQUEST RECORDS HAPPENS WITH INFECTIONS - Pulmonary History Hx COPD: No Hx Asthma/Reactive Airway Disease: No Hx Recent Upper Respiratory Infection: No Hx Oxygen in Use at Home: No Hx Sleep Apnea: No - Neurologic History Hx Cerebrovascular Accident: No Hx Seizures: No Hx Dementia: No - Endocrine History Hx Diabetes: No - Renal History Hx Renal Disorders: Yes Renal History Comment: BLADDER CA. HX OF BLADDER INFECTION LEADING TO SEPSIS- CURRENTLY ON ABX - Liver History Hx Hepatic Disorders: No - Neurological & Psychiatric Hx Hx Neurological and Psychiatric Disorders: No - Cancer History Hx Cancer: Yes Cancer History Comment: BLADDER CA IN 2010 - Congenital Disorder History Hx Congenital Disorders: No - GI History Hx Gastrointestinal Disorders: Yes Gastrointestinal History Comment: DIVERTICULOSIS - Other Health History Other Health History: PICC LINE IN [facility] CURRENTLY RECIEVING IV ABX - Chronic Pain History Chronic Pain: No - Surgical History Prior Surgeries: CYSTOSCOPY 2010. CARDIOVERSION 2010. CARDIOVERSION JULY 2013. LAP TRE 02/2012 ANE Review of Systems Review of systems is: negative Review of Systems: ANE Patient History - Allergies Allergies/Adverse Reactions: lisinopril Allergy (Verified 07/27/16 13:12) Itching nitrofurazone Allergy (Verified 08/12/17 13:15) Fever - Home Medications Home Medications: amLODIPine BESYLATE [Norvasc 5 mg (*)] 7.5 mg PO DAILY #0 07/27/16 [Last Taken 12/21/17 08:00] Apixaban [Eliquis] 5 mg PO BID #0 12/22/16 [Last Taken 12/21/17 07:30] Cholecalciferol Vit D3 [Vitamin D3 (*)] 1,000 units PO DAILY 08/12/17 [Last Taken 12/20/17 08:00] Herbals/Supplements -Info Only 1 ea PO DAILY 08/12/17 [Last Taken 12/20/17 08:00 ] Multivitamins W-Minerals [Thera M Plus Tablet (*)] 1 each PO DAILY 08/12/17 [ Last Taken 12/20/17 08:00] Zolpidem Tartrate [Ambien 5MG (*)] 5 mg PO HS PRN 08/12/17 [Last Taken 12/17/17 21:00] Irbesartan 150 mg PO DAILY 12/21/17 [Last Taken 12/20/17 08:00] Potassium Citrate ER 15 meq PO BID 12/21/17 [Last Taken 12/20/17 08:00] Taurine 1,000 mg PO DAILY 12/21/17 [Last Taken 12/21/17 08:00] - Smoking Hx Smoking Status: Former smoker - Family Anes Hx Family Hx Anesthesia Complications: NONE ANE Labs/Vital Signs - Vital Signs Height: 185.4 cm Weight: 92.1 kg ANE Physical Exam - Airway Neck exam: FROM Mallampati Score: Class 2 Mouth exam: normal dental/mouth exam - Pulmonary Pulmonary: no respiratory distress - Cardiovascular Cardiovascular: irregularly irregular - ASA Status ASA Status: III ANE Anesthesia Plan Anesthesia Plan: MAC
[2017-12-21 16:01] LABS: INR 1.22 (0.83-1.16); PROTIME(PATIENT) 15.6 SEC (12.0-15.0)
--- NOTE | 2017-12-21 16:15 | CPEKG ---
Test Reason : OPEN Blood Pressure : / mmHG Vent. Rate : 114 BPM Atrial Rate : 125 BPM P-R Int : 128 ms QRS Dur : 090 ms QT Int : 346 ms P-R-T Axes : 000 -10 044 degrees QTc Int : 477 ms Atrial fibrillation Ventricular premature complex Anteroseptal infarct, old Atrial fibrillation is new in comparison to prior (sinus bradycardia) Confirmed by Arden Gunter ([id number]) on 12/21/2017 4:15:32 PM Referred By: Confirmed By:Arden Gunter
--- NOTE | 2017-12-21 17:43 | CPR ---
DATE OF PROCEDURE: 12/21/2017 PROCEDURE PERFORMED: Direct current cardioversion. INDICATION FOR PROCEDURE: Symptomatic atrial fibrillation with rapid ventricular response. SUMMARY: The patient is a pleasant 77-year-old gentleman with a known history of paroxysmal atrial f ibrillation. He is currently on a rhythm control and anticoagulation strategy. He is currently on s otalol 40 mg p.o. b.i.d. Of note, he did undergo KEERTHI-guided cardioversion in June 2017. He states he has been compliant with Eliquis 5 mg p.o. b.i.d. since the time of his cardioversion in June. He is certain he has not missed any doses and is absolutely certain he has missed no doses of medicatio n over the 30 days leading up to his cardioversion. He developed a new onset of atrial fibrillation on evening. The rhythm has persisted, promp ting him to present today for cardioversion. After consents were obtained for cardioversion, as well as anesthesia, patient was sedated with propo fol. Once appropriate level of sedation was achieved, the patient received a single shock of [address] of biphasic synchronized energy with return to normal sinus rhythm. Patient tolerated the proced ure well. There were no postoperative complications. At the time of this dictation he is awaking from sedation. PLAN: 1. Continue Eliquis 5 mg p.o. b.i.d. 2. Continue sotalol 40 mg p.o. b.i.d. 3. Follow up with his primary script reader, Dr. Daja Farris. /[id number]/MODL
--- NOTE | 2017-12-22 16:39 | CPEKG ---
Test Reason : OPEN Blood Pressure : / mmHG Vent. Rate : 060 BPM Atrial Rate : 056 BPM P-R Int : 167 ms QRS Dur : 094 ms QT Int : 427 ms P-R-T Axes : 065 -24 023 degrees QTc Int : 427 ms Sinus rhythm Borderline left axis deviation Sinus rhythm has replaced atrial fibrillation noted on last ECG Confirmed by Arden Gunter ([id number]) on 12/22/2017 4:39:00 PM Referred By: Confirmed By:Arden Gunter
== END 2017-12-21 17:48 | disposition home or self-care (01) ==
LOC: FCATH 15:01
PROVIDERS: ATTEND Internal Medicine Cardiovascular Disease
PROC: 5A2204Z Restoration of Cardiac Rhythm, Single (ICD-10-PCS; principal; 2017-12-21)
DX: I48.91 Unspecified atrial fibrillation (principal); I10 Essential (primary) hypertension; I27.20 Pulmonary hypertension, unspecified; I08.0 Rheumatic disorders of both mitral and aortic valves; Z79.01 Long term (current) use of anticoagulants; Z85.51 Personal history of malignant neoplasm of bladder; Z86.711 Personal history of pulmonary embolism; Z87.891 Personal history of nicotine dependence; Z90.6 Acquired absence of other parts of urinary tract
CPT/HCPCS: J2250; J2704

== ENCOUNTER 2018-01-05 10:09 | Day surgery (SDC) | payer OTHER ==
[2018-01-05] MEDS ORDERED: MIDAZOLAM 2 MG/2 ML VIAL IVP ONE (10:10)
[2018-01-05] MEDS ORDERED: ATROPINE SULFATE 1 MG/10 ML SYR IVP ONE (10:10)
[2018-01-05] MEDS ORDERED: fentaNYL 100 MCG/2 ML INJ IVP ONE (10:10)
[2018-01-05] MEDS ORDERED: NS 500 ML IV ONE (10:10)
--- NOTE | 2018-01-05 11:03 | PDANEPAE ---
ANE Past Medical History - Cardiovascular History Hx Hypertension: Yes Hx Arrhythmias: Yes Hx Chest Pain: No Hx Coronary Artery / Peripheral Vascular Disease: No Hx CHF / Valvular Disease: No Hx Palpitations: Yes Cardiovascular History Comment: AFIB AND H/O MULTIPLE CARDIOVERSIONS - Pulmonary History Hx COPD: No Hx Asthma/Reactive Airway Disease: No Hx Recent Upper Respiratory Infection: No Hx Oxygen in Use at Home: No Hx Sleep Apnea: No - Neurologic History Hx Cerebrovascular Accident: No Hx Seizures: No Hx Dementia: No - Endocrine History Hx Diabetes: No Hypothyroid: No Hyperthyroid: No Obesity: no - Renal History Hx Renal Disorders: Yes Renal History Comment: BLADDER CA. HX OF BLADDER INFECTION LEADING TO SEPSIS- CURRENTLY ON ABX - Liver History Hx Hepatic Disorders: No - Neurological & Psychiatric Hx Hx Neurological and Psychiatric Disorders: No - Cancer History Hx Cancer: Yes Cancer History Comment: BLADDER CA IN 2010 - Congenital Disorder History Hx Congenital Disorders: No - GI History GERD: no Hx Gastrointestinal Disorders: Yes Gastrointestinal History Comment: DIVERTICULOSIS - Chronic Pain History Chronic Pain: No - Surgical History Prior Surgeries: CYSTOSCOPY 2010. CARDIOVERSION 2010. CARDIOVERSION JULY 2013. LAP TRE 02/2012 ANE Review of Systems Review of Systems: - Exercise capacity Exercise capacity: >=4 METS ANE Patient History - Allergies Allergies/Adverse Reactions: lisinopril Allergy (Verified 07/27/16 13:12) Itching nitrofurazone Allergy (Verified 08/12/17 13:15) Fever - Home Medications Home Medications: amLODIPine BESYLATE [Norvasc 5 mg (*)] 7.5 mg PO DAILY #0 07/27/16 [Last Taken 12/21/17 08:00] Apixaban [Eliquis] 5 mg PO BID #0 12/22/16 [Last Taken 12/21/17 07:30] Cholecalciferol Vit D3 [Vitamin D3 (*)] 1,000 units PO DAILY 08/12/17 [Last Taken 12/20/17 08:00] Herbals/Supplements -Info Only 1 ea PO DAILY 08/12/17 [Last Taken 12/20/17 08:00 ] Multivitamins W-Minerals [Thera M Plus Tablet (*)] 1 each PO DAILY 08/12/17 [ Last Taken 12/20/17 08:00] Zolpidem Tartrate [Ambien 5MG (*)] 5 mg PO HS PRN 08/12/17 [Last Taken 12/17/17 21:00] Irbesartan 150 mg PO DAILY 12/21/17 [Last Taken 12/20/17 08:00] Potassium Citrate ER 15 meq PO BID 12/21/17 [Last Taken 12/20/17 08:00] Taurine 1,000 mg PO DAILY 12/21/17 [Last Taken 12/21/17 08:00] - Anes Hx Anes Hx: no prior problems - Smoking Hx Smoking Status: Former smoker Marijuana use: No - Alcohol Use Alcohol Use: Occasionally - Family Anes Hx Family Anes Hx: neg - N/A Family Hx Anesthesia Complications: NONE ANE Labs/Vital Signs - Labs Result Diagrams: 01/05/18 10:30 ANE Physical Exam - Airway Neck exam: FROM Mallampati Score: Class 2 Mouth exam: normal dental/mouth exam - Pulmonary Pulmonary: no respiratory distress, no rales or rhonchi, clear to auscultation - Cardiovascular Cardiovascular: irregularly irregular - ASA Status ASA Status: II ANE Anesthesia Plan Anesthesia Plan: MAC Total IV Anesthesia: Yes
[2018-01-05 11:07] LABS: INR 0.99 (0.83-1.16); PROTIME(PATIENT) 13.3 SEC (12.0-15.0)
[2018-01-05] MEDS ORDERED: PROPOFOL 200 MG/20 ML VIAL ONE (11:11)
[2018-01-05] MEDS ORDERED: LIDOCAINE 2% 100 MG/5 ML SYR ONE (11:11)
--- NOTE | 2018-01-05 11:22 | PDHPUP ---
History & Physical Update H&P update statement: This history and physical update is based on an assessment of the patient which was completed after admission or registration (within 24 hours), but prior to the surgery/procedure. H&P update: H&P reviewed & patient examined, no change in patient's condition since H&P completed (Reviewed my office note dated 12/28/2017)
--- NOTE | 2018-01-05 11:44 | PDTEE1 ---
KEERTHI Cardioversion Procedure Procedure: electrical cardioversion Indications: atrial fibrillation Consent: signed and in chart Anticoagulation: eliquis Procedural Details: Pads were placed in anterior-posterior position. KEERTHI was not performed as the patient has been taking Eliquis uninterrupted for several weeks. Synchronized cardioversion attempt #1: 200J Results: normal sinus rhythm Conclusions: successful cardioversion Patient Problems: Problems Problem Status Onset Atrial fibrillation Acute
--- NOTE | 2018-01-05 11:53 | POSTANESTH ---
Post Anesthetic Evaluation Cardiovascular Status: Other, See Comment Respiratory Status: Normal, Stable Level of Consciousness/Mental Status: Can Participate in Eval Pain Control: Adequate, Prn Tx Ordered Nausea/Vomiting Control: Adequate, Prn Tx Ordered Complications Possibly Related to Anesthesia: None Noted (asymptomatic sinus bradycardia)
--- NOTE | 2018-01-07 09:19 | CPEKG ---
Test Reason : OPEN Blood Pressure : / mmHG Vent. Rate : 103 BPM Atrial Rate : 179 BPM P-R Int : 128 ms QRS Dur : 093 ms QT Int : 372 ms P-R-T Axes : 000 -27 049 degrees QTc Int : 487 ms Atrial fibrillation Ventricular premature complex Borderline left axis deviation Probable anteroseptal infarct, old Atrial fibrillation is new in comparison to prior Confirmed by Arden Gunter ([id number]) on 01/07/2018 9:18:46 AM Referred By: Confirmed By:Arden Gunter
--- NOTE | 2018-01-07 09:24 | CPEKG ---
Test Reason : OPEN Blood Pressure : / mmHG Vent. Rate : 046 BPM Atrial Rate : 046 BPM P-R Int : 182 ms QRS Dur : 098 ms QT Int : 479 ms P-R-T Axes : 066 -23 021 degrees QTc Int : 419 ms Sinus bradycardia Borderline left axis deviation Sinus bradycardia has replaced atrial fibrillation on prior Confirmed by Arden Gunter ([id number]) on 01/07/2018 9:23:36 AM Referred By: Confirmed By:Arden Gunter
== END 2018-01-05 13:10 | disposition home or self-care (01) ==
LOC: FCATH 10:09
PROVIDERS: ATTEND Internal Medicine Cardiovascular Disease
PROC: 5A2204Z Restoration of Cardiac Rhythm, Single (ICD-10-PCS; principal; 2018-01-05)
DX: I48.0 Paroxysmal atrial fibrillation (principal); I10 Essential (primary) hypertension; Z86.711 Personal history of pulmonary embolism; Z85.51 Personal history of malignant neoplasm of bladder
CPT/HCPCS: J2001; J2704

== ENCOUNTER → 2018-02-16 | Outpatient (CLI) | payer OTHER ==
[~2018-02-16] MED LIST: IOPAMIDOL (ISOVUE 370) 100 ML BTL IV ONE
== END ==
LOC: FIMAGING 12:57
PROVIDERS: ATTEND Internal Medicine Cardiovascular Disease
DX: I48.91 Unspecified atrial fibrillation (principal)
CPT/HCPCS: 75572; Q9967; 82565-PO

== ENCOUNTER 2018-02-22 11:41 | Observation (INO) | payer OTHER ==
[2018-02-22] MEDS ORDERED: IOPAMIDOL (ISOVUE-300) 100 ML BTL ONE (13:31)
[2018-02-22 13:45] LABS: PLATELET COUNT 120 10^3/uL (150-400)
[2018-02-22] MEDS ORDERED: cefOXitin SODIUM 2 GM in NS 100 ML IV ONE (13:51)
--- NOTE | 2018-02-22 13:52 | EDPHY ---
H & P Stated Complaint: constipation/rectal pain (severe) Time Seen by Provider: 02/22/18 12:47 HPI/ROS: CHIEF COMPLAINT: Rectal pain HISTORY OF PRESENT ILLNESS: The patient presents to the ED with complaints of rectal pain worsening over the past several days. He has been applying a compounded medication for the past several days without improvement of his symptoms. The patient denies any history of hemorrhoids but does report a history of a reported fungal infection in his perineal area which he had been prescribed the topical cream for in the past. The patient reports pain with attempted bowel movement. He denies symptoms of constipation. The patient is currently anticoagulated but denies any melena or hematemesis. REVIEW OF SYSTEMS: A comprehensive 10 point review of systems is otherwise negative aside from elements mentioned in the history of present illness. Source: Patient - Personal History Current Tetanus Diphtheria and Acellular Pertussis (TDAP): Yes - Medical/Surgical History Hx Asthma: No Hx Chronic Respiratory Disease: No Hx Diabetes: No Hx Cardiac Disease: Yes Hx Renal Disease: No Hx Cirrhosis: No Hx Alcoholism: No Hx HIV/AIDS: No Hx Splenectomy or Spleen Trauma: No Other PMH: afib/bladder cancer/neobladder - Social History Smoking Status: Former smoker - Physical Exam Exam: General Appearance: Alert, no distress Eyes: Pupils equal and round no pallor or injection ENT, Mouth: Mucous membranes moist Respiratory: There are no retractions, lungs are clear to auscultation Cardiovascular: Regular rate and rhythm Gastrointestinal: Abdomen is soft and nontender, no masses, bowel sounds normal Rectal exam: Palpable perirectal abscess noted Neurological: 5/5 strength noted all 4 extremities Skin: Warm and dry, no rashes Musculoskeletal: Neck is supple nontender Extremities: symmetrical, full range of motion Psychiatric: Patient is oriented X 3, there is no agitation Constitutional: Initial Vital Signs Temperature (C) 36.5 C 02/22/18 11:51 Heart Rate 72 02/22/18 11:51 Respiratory Rate 19 02/22/18 11:51 Blood Pressure 173/97 H 02/22/18 11:51 O2 Sat (%) 95 02/22/18 11:51 O2 Delivery Mode Room Air Allergies/Adverse Reactions: lisinopril Allergy (Verified 02/22/18 11:50) Itching nitrofurantoin [From Macrobid] Allergy (Verified 02/22/18 11:50) GI Upset Penicillins Allergy (Verified 02/22/18 11:50) GI Upset/Fever Home Medications: Medication Instructions Recorded amLODIPine BESYLATE [Norvasc 5 mg 5 mg PO DAILY #0 07/27/16 (*)] Apixaban [Eliquis] 5 mg PO BID #0 12/22/16 Cholecalciferol Vit D3 [Vitamin D3 1,000 units PO DAILY 08/12/17 (*)] Multivitamins W-Minerals [Thera M 1 each PO DAILY 08/12/17 Plus Tablet (*)] Zolpidem Tartrate [Ambien 5MG (*)] 5 mg PO HS PRN 08/12/17 Irbesartan [Avapro 150 mg (*)] 150 mg PO DAILY 12/21/17 Allopurinol [Allopurinol 300 MG 300 mg PO DAILY 02/16/18 (RX)] Colchicine [Colchicine (*)] 0.6 mg PO DAILY 02/16/18 Glucosamine Sulfate [Glucosamine 500 mg PO DAILY 02/16/18 Sulfate 500 MG (*)] Herbals/Supplements -Info Only 1 ea PO DAILY 02/16/18 [place]-3 Fatty Acids [Fish Oil 1000 1,000 mg PO DAILY 02/16/18 mg (*)] Omeprazole 20 mg PO DAILY 02/16/18 Sotalol HCl [Betapace 80 MG (*)] 40 mg PO BID 02/16/18 Hydrocodone/APAP 5/325 [[place] 1 - 2 tab PO Q4H 02/22/18 5/325 (*)] Medical Decision Making - Diagnostics Imaging Results: Imaging Impressions Pelvis CT 02/22/18 13:27 Impression: 1. 2 x 4 cm peripherally enhancing fluid collection posterior to the anus, suggesting abscess or phlegmon. 2. Inguinal adenopathy, which could be reactive. Consider follow-up CT pelvis in 3 months. 3. 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 4. Additional findings as above. Findings discussed with Dr. Davy Thomas on February 22, 2018 at 1441 hours. ED Course/Re-evaluation: The patient presents the emergency department with complaints of acute rectal pain. The patient is noted to have a perirectal abscess on exam. Patient had an IV established. He received a L normal saline in the emergency department. I consulted with Dr. Moreno from General surgery who evaluated the patient here. He will be admitted to the hospital for operative intervention. The patient is currently anticoagulated. Dr. Moreno did request that a CT scan of the pelvis be obtained. This was ordered with IV contrast. Differential Diagnosis: Differential diagnosis considered includes perirectal abscess, thrombosed external hemorrhoid, cellulitis, scrotal gangrene - Data Points Laboratory Results: Laboratory Results 02/22/18 13:22 02/22/18 13:22 02/22/18 02/22/18 02/22/18 13:22 13:22 13:19 WBC 8.96 10^3/uL 10^3/uL (3.80-9.50) RBC 5.10 10^6/uL 10^6/uL (4.40-6.38) Hgb 15.9 g/dL g/dL (13.7-17.5) POC Hgb 16.7 gm/dL gm/dL (13.7-17.5) Hct 48.7 % % (40.0-51.0) POC Hct 49 % % (40-51) MCV 95.5 fL fL (81.5-99.8) MCH 31.2 pg pg (27.9-34.1) MCHC 32.6 g/dL g/dL (32.4-36.7) RDW 13.2 % % (11.5-15.2) Plt Count 120 10^3/uL L 10^3/uL (150-400) MPV 12.1 fL H fL (8.7-11.7) Neut % (Auto) 72.1 % % (39.3-74.2) Lymph % (Auto) 14.6 % L % (15.0-45.0) [place] % (Auto) 11.3 % % (4.5-13.0) Eos % (Auto) 1.3 % % (0.6-7.6) Baso % (Auto) 0.3 % % (0.3-1.7) Nucleat RBC Rel Count 0.0 % % (0.0-0.2) Absolute Neuts (auto) 6.45 10^3/uL 10^3/uL (1.70-6.50) Absolute Lymphs (auto) 1.31 10^3/uL 10^3/uL (1.00-3.00) Absolute Monos (auto) 1.01 10^3/uL H 10^3/uL (0.30-0.80) Absolute Eos (auto) 0.12 10^3/uL 10^3/uL (0.03-0.40) Absolute Basos (auto) 0.03 10^3/uL 10^3/uL (0.02-0.10) Absolute Nucleated RBC 0.00 10^3/uL 10^3/uL (0-0.01) Immature Gran % 0.4 % % (0.0-1.1) Immature Gran # 0.04 10^3/uL 10^3/uL (0.00-0.10) POC Sodium 142 mEq/L mEq/L (135-145) Sodium 138 mEq/L mEq/L (135-145) POC Potassium 4.3 mEq/L mEq/L (3.3-5.0) Potassium 4.8 mEq/L mEq/L (3.5-5.2) POC Chloride 106 mEq/L mEq/L (97-110) Chloride 107 mEq/L mEq/L (97-110) Carbon Dioxide 22 mEq/l mEq/l (22-31) Anion Gap 9 mEq/L mEq/L (6-14) POC BUN 26 mg/dL H mg/dL (7-23) BUN 23 mg/dL mg/dL (7-23) Creatinine 1.0 mg/dL mg/dL (0.7-1.3) POC Creatinine 1.1 mg/dL mg/dL (0.7-1.3) Estimated GFR > 60 Glucose 82 mg/dL mg/dL (70-100) POC Glucose 85 mg/dL mg/dL (70-100) Calcium 8.7 mg/dL mg/dL (8.5-10.4) Specimen Hemolysis 136 Medications Given: Hydromorphone HCl (Dilaudid) 0.2 - 0.4 mg IVP Q1HR PRN PRN Reason: Pain, Breakthrough Stop: 03/04/18 14:12 Last Admin: 02/22/18 14:46 Dose: 0.4 mg Discontinued Medications Cefoxitin Sodium 2 gm/ Sodium (Chloride) 100 mls @ 200 mls/hr IV EDNOW ONE PRN Reason: Protocol Stop: 02/22/18 14:20 Last Admin: 02/22/18 14:47 Dose: 100 mls Point of Care Test Results: Chemistry 02/22/18 13:19 POC Sodium 142 mEq/L mEq/L (135-145) POC Potassium 4.3 mEq/L mEq/L (3.3-5.0) POC Chloride 106 mEq/L mEq/L (97-110) POC BUN 26 mg/dL H mg/dL (7-23) POC Creatinine 1.1 mg/dL mg/dL (0.7-1.3) POC Glucose 85 mg/dL mg/dL (70-100) ISTAT H&H 02/22/18 13:19 POC Hgb 16.7 gm/dL gm/dL (13.7-17.5) POC Hct 49 % % (40-51) Departure - Departure Disposition: [facility] Inpatient Acute Clinical Impression: Perirectal abscess Condition: Good
[2018-02-22] MEDS ORDERED: LR 1,000 ML IV SCH (14:30)
[2018-02-22] MEDS: HYDROmorphONE/DILAUDID 1 MG/ML INJ IVP PRN ×3 (14:46→16:51)
--- NOTE | 2018-02-22 15:47 | PDHOSCONS ---
<Aida Rubio - Last Filed: 02/22/18 16:09> History and Physical - Chief Complaint Rectal pain - History of Present Illness Hospital medicine group has been asked to consult for his atrial fibrillation. 77 y/o male presents with worsening rectal pain. He reports it began Thursday and progressively worsened to the point where it is difficult to sit or have bowel movements. He initially thought it was a fungal infection and treated it with topical medication but this did not alleviate his discomfort. Pelvic CT w/ contrast reveal 2cm x 4cm peripherally enhancing fluid collection posterior to the anus, consistent with abscess or phlegmon. Dr. Moreno will perform surgery tonight. His grocery worker is Dr. Daja Farris. He was scheduled for an ablation tomorrow. He has not taken Eliquis since Thursday because of the ablation procedure. He denies chest pain, palpitations, SOB, fever or chills. Past Medical/Surgical History 1. Atrial Fibrillation 2. Gout 3. CKD Stage III 4. Malignant Bladder neoplasm 5. Hypertension 6. Valvular heart disease 7. Pulmonary hypertension 8. Pulmonary embolism 9. Abdominal surgery 10. Cholecystectomy 11. Cystectomy 12. 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 to spouse, Rosalva 3. Denies tobacco or illicit drug use. Drinks 2 glasses of wine/day. Vital Signs 166/109 77 HR 94% RA 36.7c 18 Respirations History Information - Allergies/Home Medication List Allergies/Adverse Reactions: lisinopril Allergy (Verified 02/22/18 11:50) Itching nitrofurantoin [From Macrobid] Allergy (Verified 02/22/18 11:50) GI Upset Penicillins Allergy (Verified 02/22/18 11:50) GI Upset/Fever Home Medications: amLODIPine BESYLATE [Norvasc 5 mg (*)] 5 mg PO DAILY #0 07/27/16 [Last Taken 12/01] Apixaban [Eliquis] 5 mg PO BID #0 12/22/16 [Last Taken 02/21/18] Cholecalciferol Vit D3 [Vitamin D3 (*)] 1,000 units PO DAILY 08/12/17 [Last Taken 02/21/18] Multivitamins W-Minerals [Thera M Plus Tablet (*)] 1 each PO DAILY 08/12/17 [ Last Taken 02/21/18] Zolpidem Tartrate [Ambien 5MG (*)] 5 mg PO HS PRN 08/12/17 [Last Taken 02/22/18] Irbesartan [Avapro 150 mg (*)] 150 mg PO DAILY 12/21/17 [Last Taken 02/21/18] Allopurinol [Allopurinol 300 MG (RX)] 300 mg PO DAILY 02/16/18 [Last Taken 02/21] Colchicine [Colchicine (*)] 0.6 mg PO DAILY 02/16/18 [Last Taken 02/21/18] Glucosamine Sulfate [Glucosamine Sulfate 500 MG (*)] 500 mg PO DAILY 02/16/18 [ Last Taken 02/21/18] Herbals/Supplements -Info Only 1 ea PO DAILY 02/16/18 [Last Taken Unknown] [place]-3 Fatty Acids [Fish Oil 1000 mg (*)] 1,000 mg PO DAILY 02/16/18 [Last Taken 02/21/18] Omeprazole 20 mg PO DAILY 02/16/18 [Last Taken 02/21/18] Sotalol HCl [Betapace 80 MG (*)] 40 mg PO BID 02/16/18 [Last Taken 02/18/18] Hydrocodone/APAP 5/325 [[place] 5/325 (*)] 1 - 2 tab PO Q4H 02/22/18 [Last Taken 02/22/18] I have personally reviewed and updated: family history, medical history, social history, surgical history Past Medical History: See HPI List - Surgical History Additional surgical history: See HPI List - Family History Positive for: stroke Additional family history: Cirrhosis of liver - Social History Smoking Status: Former smoker Alcohol Use: Occasionally Drug Use: None Review of Systems Review of Systems: ROS: 10pt was reviewed & negative except for what was stated in HPI & below Constitutional: Reports: no symptoms EENMT: Reports: no symptoms Cardiac: Reports: no symptoms Respiratory: Reports: no symptoms Gastrointestinal: Reports: rectal pain Genitourinary: Reports: no symptoms Muscolosketal: Reports: no symptoms Skin: Reports: no symptoms Neurological: Reports: no symptoms Hematologic/Lymphatic: Reports: no symptoms Immunologic/Allergy: Reports: other (See allergy list) Physical Exam Physical Exam: Temp Pulse Resp BP Pulse Ox 36.7 C 77 18 166/109 H 94 02/22/18 15:11 02/22/18 15:11 02/22/18 15:11 02/22/18 15:11 02/22/18 15:11 Constitutional: no apparent distress, appears nourished, not in pain Eyes: PERRL, anicteric sclera, EOMI Ears, Nose, Mouth, Throat: moist mucous membranes, hearing normal, ears appear normal, no oral mucosal ulcers Cardiovascular: regular rate and rhythym, no murmur, rub, or gallop, No edema Peripheral Pulses: 2+: dorsalis-pedis (R) (Radial 2+), dorsalis-pedis (L) ( Radial 2+) Respiratory: no respiratory distress, no rales or rhonchi, clear to auscultation Gastrointestinal: normoactive bowel sounds, soft, non-tender abdomen, no palpable masses Genitourinary: no bladder fullness, no bladder tenderness Skin: warm, normal color, no rashes or abrasions, no fluctuance, no induration, No mottled Musculoskeletal: full muscle strength, no muscle tenderness, normal joint ROM, no joint effusions Neurologic: AAOx3, sensation intact bilaterally, CN II-XII Intact Psychiatric: interacting appropriately, not anxious, not encephalopathic, thought process linear Lymph, Heme, Immunologic: no cervical LAD, no supraclavicular LAD Lab Data & Imaging Review 02/22/18 13:22 02/22/18 13:22 WBC 8.96 10^3/uL (3.80-9.50) 02/22/18 13:22 RBC 5.10 10^6/uL (4.40-6.38) 02/22/18 13:22 Hgb 15.9 g/dL (13.7-17.5) 02/22/18 13:22 POC Hgb 16.7 gm/dL (13.7-17.5) 02/22/18 13:19 Hct 48.7 % (40.0-51.0) 02/22/18 13:22 POC Hct 49 % (40-51) 02/22/18 13:19 MCV 95.5 fL (81.5-99.8) 02/22/18 13:22 MCH 31.2 pg (27.9-34.1) 02/22/18 13:22 MCHC 32.6 g/dL (32.4-36.7) 02/22/18 13:22 RDW 13.2 % (11.5-15.2) 02/22/18 13:22 Plt Count 120 10^3/uL (150-400) L 02/22/18 13:22 MPV 12.1 fL (8.7-11.7) H 02/22/18 13:22 Neut % (Auto) 72.1 % (39.3-74.2) 02/22/18 13:22 Lymph % (Auto) 14.6 % (15.0-45.0) L 02/22/18 13:22 [place] % (Auto) 11.3 % (4.5-13.0) 02/22/18 13:22 Eos % (Auto) 1.3 % (0.6-7.6) 02/22/18 13:22 Baso % (Auto) 0.3 % (0.3-1.7) 02/22/18 13:22 Nucleat RBC Rel Count 0.0 % (0.0-0.2) 02/22/18 13:22 Absolute Neuts (auto) 6.45 10^3/uL (1.70-6.50) 02/22/18 13:22 Absolute Lymphs (auto) 1.31 10^3/uL (1.00-3.00) 02/22/18 13:22 Absolute Monos (auto) 1.01 10^3/uL (0.30-0.80) H 02/22/18 13:22 Absolute Eos (auto) 0.12 10^3/uL (0.03-0.40) 02/22/18 13:22 Absolute Basos (auto) 0.03 10^3/uL (0.02-0.10) 02/22/18 13:22 Absolute Nucleated RBC 0.00 10^3/uL (0-0.01) 02/22/18 13:22 Immature Gran % 0.4 % (0.0-1.1) 02/22/18 13:22 Immature Gran # 0.04 10^3/uL (0.00-0.10) 02/22/18 13:22 POC Sodium 142 mEq/L (135-145) 02/22/18 13:19 Sodium 138 mEq/L (135-145) 02/22/18 13:22 POC Potassium 4.3 mEq/L (3.3-5.0) 02/22/18 13:19 Potassium 4.8 mEq/L (3.5-5.2) 02/22/18 13:22 POC Chloride 106 mEq/L (97-110) 02/22/18 13:19 Chloride 107 mEq/L (97-110) 02/22/18 13:22 Carbon Dioxide 22 mEq/l (22-31) 02/22/18 13:22 Anion Gap 9 mEq/L (6-14) 02/22/18 13:22 POC BUN 26 mg/dL (7-23) H 02/22/18 13:19 BUN 23 mg/dL (7-23) 02/22/18 13:22 Creatinine 1.0 mg/dL (0.7-1.3) 02/22/18 13:22 POC Creatinine 1.1 mg/dL (0.7-1.3) 02/22/18 13:19 Estimated GFR > 60 02/22/18 13:22 Glucose 82 mg/dL (70-100) 02/22/18 13:22 POC Glucose 85 mg/dL (70-100) 02/22/18 13:19 Calcium 8.7 mg/dL (8.5-10.4) 02/22/18 13:22 Specimen Hemolysis 136 02/22/18 13:22 Assessment & Plan Plan: 1. Acute Perirectal abscess -Consult general surgery; Dr. Moreno aware and will perform surgery tonight -IV fluids -NPO status 2. Hypertension -May resume amlodipine, irbesartan, sotalol post-op -Hydralazine 5mg IVP if sbp > 170 PRN 3. Atrial Fibrillation -Consult cards; Called Dr. Daja Farris and left a voicemail -Holding Eliquis until cleared by Dr. Moreno to resume; it appears this will be tomorrow at 2100 -Cont tele monitoring 4. CKD III -Creatinine 1.1 -Avoid nephrotoxic agents Code: Full VTE ppx: SCDs, Eliquis Diet: NPO Dispo: Admit to obs <Priyanka Diaz - Last Filed: 02/22/18 16:58> History and Physical - History of Present Illness Review of Systems Review of Systems: Physical Exam Physical Exam: Temp Pulse Resp BP Pulse Ox 36.7 C 77 18 166/109 H 94 02/22/18 15:11 02/22/18 15:11 02/22/18 15:11 02/22/18 15:11 02/22/18 15:11 Lab Data & Imaging Review 02/22/18 13:22 02/22/18 13:22 WBC 8.96 10^3/uL (3.80-9.50) 02/22/18 13:22 RBC 5.10 10^6/uL (4.40-6.38) 02/22/18 13:22 Hgb 15.9 g/dL (13.7-17.5) 02/22/18 13:22 POC Hgb 16.7 gm/dL (13.7-17.5) 02/22/18 13:19 Hct 48.7 % (40.0-51.0) 02/22/18 13:22 POC Hct 49 % (40-51) 02/22/18 13:19 MCV 95.5 fL (81.5-99.8) 02/22/18 13:22 MCH 31.2 pg (27.9-34.1) 02/22/18 13:22 MCHC 32.6 g/dL (32.4-36.7) 02/22/18 13:22 RDW 13.2 % (11.5-15.2) 02/22/18 13:22 Plt Count 120 10^3/uL (150-400) L 02/22/18 13:22 MPV 12.1 fL (8.7-11.7) H 02/22/18 13:22 Neut % (Auto) 72.1 % (39.3-74.2) 02/22/18 13:22 Lymph % (Auto) 14.6 % (15.0-45.0) L 02/22/18 13:22 [place] % (Auto) 11.3 % (4.5-13.0) 02/22/18 13:22 Eos % (Auto) 1.3 % (0.6-7.6) 02/22/18 13:22 Baso % (Auto) 0.3 % (0.3-1.7) 02/22/18 13:22 Nucleat RBC Rel Count 0.0 % (0.0-0.2) 02/22/18 13:22 Absolute Neuts (auto) 6.45 10^3/uL (1.70-6.50) 02/22/18 13:22 Absolute Lymphs (auto) 1.31 10^3/uL (1.00-3.00) 02/22/18 13:22 Absolute Monos (auto) 1.01 10^3/uL (0.30-0.80) H 02/22/18 13:22 Absolute Eos (auto) 0.12 10^3/uL (0.03-0.40) 02/22/18 13:22 Absolute Basos (auto) 0.03 10^3/uL (0.02-0.10) 02/22/18 13:22 Absolute Nucleated RBC 0.00 10^3/uL (0-0.01) 02/22/18 13:22 Immature Gran % 0.4 % (0.0-1.1) 02/22/18 13:22 Immature Gran # 0.04 10^3/uL (0.00-0.10) 02/22/18 13:22 POC Sodium 142 mEq/L (135-145) 02/22/18 13:19 Sodium 138 mEq/L (135-145) 02/22/18 13:22 POC Potassium 4.3 mEq/L (3.3-5.0) 02/22/18 13:19 Potassium 4.8 mEq/L (3.5-5.2) 02/22/18 13:22 POC Chloride 106 mEq/L (97-110) 02/22/18 13:19 Chloride 107 mEq/L (97-110) 02/22/18 13:22 Carbon Dioxide 22 mEq/l (22-31) 02/22/18 13:22 Anion Gap 9 mEq/L (6-14) 02/22/18 13:22 POC BUN 26 mg/dL (7-23) H 02/22/18 13:19 BUN 23 mg/dL (7-23) 02/22/18 13:22 Creatinine 1.0 mg/dL (0.7-1.3) 02/22/18 13:22 POC Creatinine 1.1 mg/dL (0.7-1.3) 02/22/18 13:19 Estimated GFR > 60 02/22/18 13:22 Glucose 82 mg/dL (70-100) 02/22/18 13:22 POC Glucose 85 mg/dL (70-100) 02/22/18 13:19 Calcium 8.7 mg/dL (8.5-10.4) 02/22/18 13:22 Specimen Hemolysis 136 02/22/18 13:22 Assessment & Plan Assessment: Perirectal abscess (Acute) Plan: Patient seen independently and care plan reviewed with JOCELYN Rubio. Agree with her assessment and plan as outlined above.
[2018-02-22] MEDS ORDERED: hydrALAZINE 20 MG/ML VIAL IVP PRN (15:49)
--- NOTE | 2018-02-22 16:07 | GHP ---
DATE OF ADMISSION: 02/22/2018 ADMITTING DIAGNOSIS: Posterior perirectal abscess. HISTORY: Nico Michael is a 77-year-old male who recalls passing a hard stool on morning. He arrived home on Thursday evening complained of tenderness in his buttocks. He thought he took a pain medication, but it turns out to have been an unknown antibiotic for his neobladder. He had increasing pain and presented to the ER this morning. He has had no prior similar symptoms. There is no history of inflammatory bowel disease, specifically Crohn disease. He has not had any rectal instrumentation. His last meal was coffee, orange juice, and half a yogurt [address] is consistent with a posteriorly based perirectal abscess. PAST SOCIAL HISTORY: His BMI is 25. He smoked 2 packs a day from ages [age]. He drinks approximately 2 glasses of wine a night. ALLERGY: He does have an allergy as manifested by a rash I believe with nitrofurantoin and lisinopril, as well as penicillin. CURRENT MEDICATIONS: Include allopurinol 300 mg daily and colchicine 0.6 mg daily for gout of 2 months duration. He has had atrial fibrillation for 3-4 years. This occurred after a viral infection. They are unaware of his ejection fraction. He currently takes Betapace 40 mg twice a day, Avapro 150 mg daily, and Norvasc 5 mg daily. He is on Eliquis chronically at 5 mg a day but stopped it on Thursday in anticipation of an ablation tomorrow. He has been hypertensive for 15 years. Other medications include vitamin D3 1000 units daily, glucosamine 500 mg daily (prophylactic), herbal medications. He takes a multivitamin, omega-3 1000 mg daily, and Ambien for sleep. PAST SURGICAL HISTORY: Include the formation of a neobladder. This has worked well for him, but since that time. He has had alternating constipation and diarrhea. He has had a cholecystectomy. He has had 8-9 cardioversions because of the onset of atrial fibrillation with severe drop in blood pressure. He has no history of rheumatic fever, tuberculosis, hepatitis, or transfusions. REVIEW OF SYSTEMS: Aside from what is mentioned above is hypertension for 15 years, he wears lenses for visual correction, and has dental crowns. PHYSICAL EXAMINATION: GENERAL: He is awake, alert, in no acute distress, except for complaining of buttocks pain. VITAL SIGNS: His blood pressure is 178/175. His room air saturation is 94%. His temperature is 36.5. LABS: His white count is 8.9 with 72% neutrophils. His platelet count is 120. His hematocrit is 48. His BUN is 26, his creatinine is 1.1. NEUROLOGIC: He is oriented to person, place, and time. GCS is 15. There are no focal lateralizing or neurologic findings. NECK: There are no carotid bruits. Thyroid is not enlarged. LYMPHATIC: There is no cervical, supraclavicular, axillary lymphadenopathy. There is right inguinal lymphadenopathy. BACK: Unremarkable. LUNGS: Clear to auscultation. CARDIAC: Shows a regular rate and rhythm. There are no murmurs, rubs, or gallops. ABDOMEN: Soft and nontender. IMPRESSION: Patient with a perirectal abscess. I will plan to take him to the operating room for I and D. Because of his penicillin allergy, he has received cefoxitin 2 g IV. I will ask Medicine to consult because of his cardiac issues. /[id number]/MODL MTDD
--- NOTE | 2018-02-22 17:03 | HOSPPROG ---
Hospitalist Progress Note Assessment/Plan: 77 yo M w/ hx of a fib scheduled for ablation in am presenting with perirectal abscess # Acute Perirectal abscess--admitted to gen surgery with plans for surgery in OR this evening, pain currently controlled # Hypertension -will resume home meds in am: amlodipine, irbesartan, sotalol -prn hydralazine as needed tonight, suspect driven largely by pain # Atrial Fibrillation -cardiology aware he is here, was scheduled for ablation in am but this will likely need to be postponed, currently appears to be in SR, ecg pending but tele reviewed, patient notes he has been in sinus for weeks -will monitor on tele, holding eliquis until cleared by surg to resume # CKD III -with baseline creatinine of approximately 1.3, currently better than baseline, will monitor # hx of bladder cancer and ureteral stents Code: Full VTE ppx: SCDs Diet: NPO Dispo: Admit to obs Patient seen and evaluated independently and care plan reviewed with JOCELYN Rubio, agree with her separate H&P, please see for further details. Objective: Vital Signs Temp Pulse Resp BP Pulse Ox 36.7 C 77 18 166/109 H 94 02/22/18 15:11 02/22/18 15:11 02/22/18 15:11 02/22/18 15:11 02/22/18 15:11 02/21/18 02/22/18 02/23/18 05:59 05:59 05:59 Intake Total 75 Balance 75 ICD10 Worksheet Patient Problems: Problems Problem Status Onset Perirectal abscess Acute Atrial fibrillation Acute
--- NOTE | 2018-02-22 19:30 | PDANEPAE ---
ANE History of Present Illness I and D perirectal abscess ANE Past Medical History - Cardiovascular History Hx Hypertension: Yes Hx Arrhythmias: Yes Hx Chest Pain: No Hx Coronary Artery / Peripheral Vascular Disease: No Hx CHF / Valvular Disease: No Hx Palpitations: Yes Cardiovascular History Comment: AFIB AND H/O MULTIPLE CARDIOVERSIONS - Pulmonary History Hx COPD: No Hx Asthma/Reactive Airway Disease: No Hx Recent Upper Respiratory Infection: No Hx Oxygen in Use at Home: No Hx Sleep Apnea: No Sleep Apnea Screening Result - Last Documented: Positive - Neurologic History Hx Cerebrovascular Accident: No Hx Seizures: No Hx Dementia: No - Endocrine History Hx Diabetes: No - Renal History Hx Renal Disorders: Yes Renal History Comment: BLADDER CA. HX OF BLADDER INFECTION LEADING TO SEPSIS- CURRENTLY ON ABX - Liver History Hx Hepatic Disorders: No - Neurological & Psychiatric Hx Hx Neurological and Psychiatric Disorders: No - Cancer History Hx Cancer: Yes Cancer History Comment: BLADDER CA IN 2010 - Congenital Disorder History Hx Congenital Disorders: No - GI History Hx Gastrointestinal Disorders: Yes Gastrointestinal History Comment: DIVERTICULOSIS - Other Health History Other Health History: PICC LINE IN [place] CURRENTLY RECIEVING IV ABX - Chronic Pain History Chronic Pain: No - Surgical History Prior Surgeries: CYSTOSCOPY 2010. CARDIOVERSION 2010. CARDIOVERSION JULY 2013. LAP TRE 02/2012 ANE Review of Systems Review of Systems: - Exercise capacity METS (RN): 4 METS ANE Patient History - Allergies Allergies/Adverse Reactions: lisinopril Allergy (Verified 02/22/18 11:50) Itching nitrofurantoin [From Macrobid] Allergy (Verified 02/22/18 11:50) GI Upset Penicillins Allergy (Verified 02/22/18 11:50) GI Upset/Fever - Home Medications Home Medications: amLODIPine BESYLATE [Norvasc 5 mg (*)] 5 mg PO DAILY #0 07/27/16 [Last Taken 12/01] Apixaban [Eliquis] 5 mg PO BID #0 12/22/16 [Last Taken 02/21/18] Cholecalciferol Vit D3 [Vitamin D3 (*)] 1,000 units PO DAILY 08/12/17 [Last Taken 02/21/18] Multivitamins W-Minerals [Thera M Plus Tablet (*)] 1 each PO DAILY 08/12/17 [ Last Taken 02/21/18] Zolpidem Tartrate [Ambien 5MG (*)] 5 mg PO HS PRN 08/12/17 [Last Taken 02/22/18] Irbesartan [Avapro 150 mg (*)] 150 mg PO DAILY 12/21/17 [Last Taken 02/21/18] Allopurinol [Allopurinol 300 MG (RX)] 300 mg PO DAILY 02/16/18 [Last Taken 02/21] Colchicine [Colchicine (*)] 0.6 mg PO DAILY 02/16/18 [Last Taken 02/21/18] Glucosamine Sulfate [Glucosamine Sulfate 500 MG (*)] 500 mg PO DAILY 02/16/18 [ Last Taken 02/21/18] Herbals/Supplements -Info Only 1 ea PO DAILY 02/16/18 [Last Taken Unknown] [place]-3 Fatty Acids [Fish Oil 1000 mg (*)] 1,000 mg PO DAILY 02/16/18 [Last Taken 02/21/18] Omeprazole 20 mg PO DAILY 02/16/18 [Last Taken 02/21/18] Sotalol HCl [Betapace 80 MG (*)] 40 mg PO BID 02/16/18 [Last Taken 02/18/18] Hydrocodone/APAP 5/325 [[place] 5/325 (*)] 1 - 2 tab PO Q4H 02/22/18 [Last Taken 02/22/18] - NPO status NPO Status: no food or drink >8 hours NPO Since - Liquids (Date): 02/22/18 NPO Since - Liquids (Time): 08:00 NPO Since - Solids (Date): 02/22/18 NPO Since - Solids (Time): 08:00 - Smoking Hx Smoking Status: Former smoker - Alcohol Use Alcohol Use: Occasionally - Family Anes Hx Family Hx Anesthesia Complications: NONE ANE Labs/Vital Signs - Labs Result Diagrams: 02/22/18 13:22 02/22/18 13:22 - Vital Signs Blood Pressure: 192/92 Heart Rate: 87 Respiratory Rate: 18 O2 Sat (%): 94 Height: 185.42 cm Weight: 88.904 kg ANE Physical Exam - Airway Neck exam: FROM Mallampati Score: Class 2 Mouth exam: normal dental/mouth exam - Pulmonary Pulmonary: no respiratory distress, no rales or rhonchi - Cardiovascular Cardiovascular: regular rate and rhythym, no murmur, rub, or gallop - ASA Status ASA Status: III ANE Anesthesia Plan Anesthesia Plan: general endotracheal anesthesia
[2018-02-22] MEDS ORDERED: BACITRACIN 50,000 UNITS/10 ML SYR IRR ONE (19:54)
[2018-02-22] MEDS ORDERED: fentaNYL 100 MCG/2 ML INJ ONE ×3 (19:59→21:36)
[2018-02-22] MEDS ORDERED: PROPOFOL/EMULSION 500 MG/50 ML BOTTLE IV ONE (20:00)
[2018-02-22] MEDS ORDERED: ONDANSETRON 4 MG/2 ML VIAL ONE (20:01)
[2018-02-22] MEDS ORDERED: LIDOCAINE 2% 5 ML SDV ONE (20:01)
[2018-02-22] MEDS ORDERED: GLYCOPYRROLATE 0.2 MG/1 ML VIAL ONE (20:01)
[2018-02-22] MEDS ORDERED: SUGAMMADEX SODIUM 200 MG/2 ML VIAL IVP ONE (21:06)
[2018-02-22] MEDS ORDERED: LABETALOL HCL 5 MG/ML 20 ML MDV ONE (21:19)
[2018-02-22] MEDS ORDERED: fentaNYL 100 MCG/2 ML INJ IVP PRN (21:21)
[2018-02-22] MEDS ORDERED: HYDROmorphONE/DILAUDID 2 MG/ML INJ IVP PRN (21:21)
[2018-02-22] MEDS ORDERED: LABETALOL HCL 20 MG/4 ML INJ IVP PRN (21:21)
[2018-02-22] MEDS ORDERED: NALOXONE HCL 0.4 MG/ML INJ IVP PRN (21:21)
[2018-02-22] MEDS ORDERED: ONDANSETRON 4 MG/2 ML VIAL IVP PRN (21:21)
[2018-02-22] MEDS ORDERED: DIAZEPAM 5 MG/ML 1 ML SYR IVP PRN (21:21)
[2018-02-22] MEDS ORDERED: PROMETHAZINE HCL 25 MG/ML INJ IVP PRN (21:21)
--- NOTE | 2018-02-22 21:51 | POSTOPPROG ---
Post Op Note Date of Operation: 02/22/18 Surgeon: Feliberto Moreno Anesthesia: GET(General Endotracheal) Pre-op Diagnosis: heather-rectal abscess, possible fistula Post-op Diagnosis: heather-rectal abscess Indication: heather-rectal abscess, possible fistula Procedure: I&D heather-rectal abscess Findings: heather-rectal abscess Inf/Abcess present in the surg proc area at time of surgery?: Yes Depth: Superfical (Skin SQ) EBL: Minimal Total fluids administered: 350 Complications: none Drains: Other (1/4 " iodoform wick) Specimen(s): culture
[2018-02-22] MEDS ORDERED: ACETAMINOPHEN 325 MG TAB PO SCH (22:00)
[2018-02-22] MEDS: cefOXitin SODIUM 1 GM in NS 50 ML IV SCH (22:41)
[2018-02-22] MEDS: ACETAMINOPHEN 500 MG TAB PO SCH (22:50)
[2018-02-22] MEDS: SOTALOL HCL 80 MG TAB PO SCH (22:52)
[2018-02-23] MEDS: KETOROLAC 15 MG/1 ML SDV IVP SCH ×3 (00:57→13:41)
[2018-02-23] MEDS: ACETAMINOPHEN 500 MG TAB PO SCH (05:01)
[2018-02-23] MEDS: cefOXitin SODIUM 1 GM in NS 50 ML IV SCH ×2 (05:01→09:09)
--- NOTE | 2018-02-23 05:45 | GOP ---
DATE OF OPERATION: 02/22/2018 SURGEON: Feliberto Moreno MD ANESTHESIA: General endotracheal anesthesia in a prone position. PREOPERATIVE DIAGNOSIS: Perirectal abscess, possible fistula. POSTOPERATIVE DIAGNOSIS: Perirectal abscess. PROCEDURE PERFORMED: Incision and drainage perirectal abscess. FINDINGS: Perirectal abscess. ESTIMATED BLOOD LOSS: Minimal. INDICATIONS: Perirectal abscess, possible fistula. DESCRIPTION OF PROCEDURE: The patient is intubated in the supine position and carefully flipped onto the operating table in the prone position. There were bilateral bolsters to allow good abdominal ex pansion. His face is in a protective face mass. The bed is now carefully placed in the mena-knife p osition. His perianal hairs were carefully clipped. Three inch tape was used to spread the buttocks . The perineal region was carefully prepped and draped. A surgical time-out was carried out and agreed to by all members of the operative team. A round incision was planned over the abscess, which is just slightly to the left of the midline. Th e skin was incised with Bovie electrocautery. A bloody purulent material was obtained. Cultures are obtained. The circular skin flap was removed. The incision was enlarged posteriorly to allow janeen r evaluation. Cautery was used to control bleeding. There was no evidence of a fistulous tract at t his time. Site is well irrigated. It was packed with quarter-inch iodoform gauze. 4x4s were placed over it, ABDs placed over the 4x4s and tape was applied. The patient was transferred back to [facility] in stable and satisfactory condition. FLUIDS: 350 cc. COMPLICATIONS: None. The wound is treated with irrigation and then packing with a quarter-inch iodoform wick. /[id number]/MODL
[2018-02-23 08:22] VITALS: BP 139/77
--- NOTE | 2018-02-23 08:43 | PDDCSUM ---
Discharge Summary Discharge Summary: DISCHARGE SUMMARY Date of Admission 02/22/18 Date of Discharge 02/23/18 DISCHARGE DIAGNOSES - perirectal abscess HOSPITAL COURSE The patient was admitted from the ED and taken to the operating room where they underwent an uneventful incision and drainage of perirectal abscess. They were subsequently taken to the PACU and then the general medical floor. The hospital course was uneventful, their diet was advanced to a regular diet which was well tolerated and their pain was well controlled. They were discharged home in stable condition on February 23 DISCHARGE MEDICATIONS Augmentin for 5 days DISPOSITION home FOLLOW UP Follow up with me in the office in 10-14 days for a general post-operative visit Total DC time = 25 minutes; more than 50% spent counseling/coordinating care
[2018-02-23] MEDS ORDERED: OMEGA-3 FATTY ACIDS 1,000 MG CAP PO SCH (09:00)
[2018-02-23] MEDS ORDERED: COLCHICINE 0.6 MG CAP/TAB PO SCH (09:00)
[2018-02-23] MEDS ORDERED: PSYLLIUM METAMUCIL 1 PKT PO SCH (09:00)
[2018-02-23] MEDS ORDERED: CHOLECALCIFEROL VIT D3 1,000 UNITS TAB PO SCH (09:00)
[2018-02-23] MEDS ORDERED: ALLOPURINOL 300 MG TAB PO SCH (09:00)
[2018-02-23] MEDS ORDERED: amLODIPine BESYLATE 5 MG TAB PO SCH (09:00)
[2018-02-23] MEDS ORDERED: MULTIVITAMINS W-MINERALS 1 EACH TAB PO SCH (09:00)
[2018-02-23] MEDS ORDERED: IRBESARTAN 150 MG TAB PO SCH (09:00)
[2018-02-23] MEDS: SOTALOL HCL 80 MG TAB PO SCH (09:10)
--- NOTE | 2018-02-23 10:15 | POSTANESTH ---
Post Anesthetic Evaluation Cardiovascular Status: Similar to Pre-Op Cond Respiratory Status: Normal, Stable Level of Consciousness/Mental Status: Can Participate in Eval Pain Control: Adequate, Prn Tx Ordered Nausea/Vomiting Control: Adequate, Prn Tx Ordered Complications Possibly Related to Anesthesia: None Noted (Doing well No compliants)
[2018-02-23] MEDS ORDERED: APIXABAN 5 MG TAB PO SCH (21:00)
--- NOTE | 2018-02-24 05:50 | CPEKG ---
Test Reason : OPEN Blood Pressure : / mmHG Vent. Rate : 084 BPM Atrial Rate : 084 BPM P-R Int : 170 ms QRS Dur : 096 ms QT Int : 375 ms P-R-T Axes : 063 -11 056 degrees QTc Int : 444 ms Sinus rhythm Probable left atrial enlargement Confirmed by Tad Edwards ([id number]) on 02/24/2018 5:50:39 AM Referred By: Confirmed By:Tad Edwadrs
--- NOTE | 2018-02-24 11:16 | CPEKG ---
Test Reason : OPEN Blood Pressure : / mmHG Vent. Rate : 084 BPM Atrial Rate : 084 BPM P-R Int : 170 ms QRS Dur : 096 ms QT Int : 375 ms P-R-T Axes : 063 -11 056 degrees QTc Int : 444 ms Sinus rhythm Left atrial enlargement present Non-specific ST depression inferior and lateral leads. Confirmed by Tad Edwards ([id number]) on 02/24/2018 11:16:25 AM Referred By: Confirmed By:Tad Edwards
== END 2018-02-23 12:52 | disposition home or self-care (01) ==
LOC: F3E 15:00
PROVIDERS: ADMIT Surgery; ATTEND Surgery
PROC: 0D9QXZZ Drainage of Anus, External Approach (ICD-10-PCS; principal; 2018-02-22 17:00)
DX: K61.1 Rectal abscess (principal); I48.91 Unspecified atrial fibrillation; N18.3 Chronic kidney disease, stage 3 (moderate); M10.9 Gout, unspecified; I12.9 Hypertensive chronic kidney disease with stage 1 through stage 4 chronic kidney disease, or unspecified chronic kidney disease; I27.20 Pulmonary hypertension, unspecified; Z86.711 Personal history of pulmonary embolism; Z85.51 Personal history of malignant neoplasm of bladder; Z87.891 Personal history of nicotine dependence; Z79.01 Long term (current) use of anticoagulants
CPT/HCPCS: 46050; 72193; 93005; 96361; 96375; 99285; G0378; J0360; J0694; J1170; J1885; J2405; J2704; J3010; Q9967; 82435-PO; 82565-PO; 82947-PO; 84132-PO; 84295-PO; 84520-PO; 85014-PO

== ENCOUNTER 2018-04-27 11:06 | Observation (INO) | payer OTHER ==
[2018-04-27] MEDS ORDERED: NS 1,000 ML IV ONE (11:10)
--- NOTE | 2018-04-27 11:27 | PDGENHP ---
History & Physical Chief Complaint: afib Relevant Physical Exam: [id number]. cta. [id number] Cardiorespiratory Assessment: for af ablation
[2018-04-27] MEDS ORDERED: MIDAZOLAM 2 MG/2 ML VIAL IVP ONE (11:29)
--- NOTE | 2018-04-27 11:29 | PDANEPAE ---
ANE History of Present Illness here for AF ablation ANE Past Medical History - Cardiovascular History Hx Hypertension: Yes Hx Arrhythmias: Yes Hx Chest Pain: No Hx Coronary Artery / Peripheral Vascular Disease: No Hx CHF / Valvular Disease: No Hx Palpitations: Yes Cardiovascular History Comment: AFIB AND H/O MULTIPLE CARDIOVERSIONS - Pulmonary History Hx COPD: No Hx Asthma/Reactive Airway Disease: No Hx Recent Upper Respiratory Infection: No Hx Oxygen in Use at Home: No Hx Sleep Apnea: No - Neurologic History Hx Cerebrovascular Accident: No Hx Seizures: No Hx Dementia: No - Endocrine History Hx Diabetes: No - Renal History Hx Renal Disorders: Yes Renal History Comment: BLADDER CA. HX OF BLADDER INFECTION LEADING TO SEPSIS- CURRENTLY ON ABX - Liver History Hx Hepatic Disorders: No - Neurological & Psychiatric Hx Hx Neurological and Psychiatric Disorders: No - Cancer History Hx Cancer: Yes Cancer History Comment: BLADDER CA IN 2010 - Congenital Disorder History Hx Congenital Disorders: No - GI History Hx Gastrointestinal Disorders: Yes Gastrointestinal History Comment: DIVERTICULOSIS - Other Health History Other Health History: PICC LINE IN [place] CURRENTLY RECIEVING IV ABX - Chronic Pain History Chronic Pain: No - Surgical History Prior Surgeries: CYSTOSCOPY 2010. CARDIOVERSION 2010. CARDIOVERSION JULY 2013. LAP TRE 02/2012 ANE Review of Systems Review of Systems: ANE Patient History - Allergies Allergies/Adverse Reactions: lisinopril Allergy (Verified 02/22/18 11:50) Itching nitrofurantoin [From Macrobid] Allergy (Verified 02/22/18 11:50) GI Upset Penicillins Allergy (Verified 02/22/18 11:50) GI Upset/Fever - Home Medications Home Medications: amLODIPine BESYLATE [Norvasc 5 mg (*)] 5 mg PO DAILY #0 07/27/16 [Last Taken 12/01] Apixaban [Eliquis] 5 mg PO BID #0 12/22/16 [Last Taken 02/21/18] Cholecalciferol Vit D3 [Vitamin D3 (*)] 1,000 units PO DAILY 08/12/17 [Last Taken 02/21/18] Multivitamins W-Minerals [Thera M Plus Tablet (*)] 1 each PO DAILY 08/12/17 [ Last Taken 02/21/18] Zolpidem Tartrate [Ambien 5MG (*)] 5 mg PO HS PRN 08/12/17 [Last Taken 02/22/18] Irbesartan [Avapro 150 mg (*)] 150 mg PO DAILY 12/21/17 [Last Taken 02/21/18] Allopurinol [Allopurinol 300 MG (RX)] 300 mg PO DAILY 02/16/18 [Last Taken 02/21] Colchicine [Colchicine (*)] 0.6 mg PO DAILY 02/16/18 [Last Taken 02/21/18] Glucosamine Sulfate [Glucosamine Sulfate 500 MG (*)] 500 mg PO DAILY 02/16/18 [ Last Taken 02/21/18] Herbals/Supplements -Info Only 1 ea PO DAILY 02/16/18 [Last Taken Unknown] [place]-3 Fatty Acids [Fish Oil 1000 mg (*)] 1,000 mg PO DAILY 02/16/18 [Last Taken 02/21/18] Omeprazole 20 mg PO DAILY 02/16/18 [Last Taken 02/21/18] Sotalol HCl [Betapace 80 MG (*)] 40 mg PO BID 02/16/18 [Last Taken 02/18/18] - Smoking Hx Smoking Status: Former smoker - Family Anes Hx Family Hx Anesthesia Complications: NONE
[2018-04-27 12:09] LABS: PLATELET COUNT 128 10^3/uL (150-400)
[2018-04-27 12:26] LABS: INR 0.92 (0.83-1.16); PROTIME(PATIENT) 12.6 SEC (12.0-15.0)
[2018-04-27] MEDS ORDERED: HEPARIN 10,000 UNIT/10 ML MDV (1,000 UNIT/ML) ONE (13:36)
[2018-04-27] MEDS ORDERED: HEPARIN/DEXTROSE 25,000 UNIT/500 ML BAG ONE (13:36)
[2018-04-27] MEDS ORDERED: LIDOCAINE 1% 300 MG/30 ML SDV ONE (13:36)
[2018-04-27] MEDS ORDERED: BUPIVACAINE 0.75% 10 ML SDV ONE (13:37)
[2018-04-27] MEDS ORDERED: IOPAMIDOL (ISOVUE-300) 100 ML BTL ONE (13:37)
[2018-04-27] MEDS ORDERED: fentaNYL 100 MCG/2 ML INJ ONE ×2 (13:57→15:12)
[2018-04-27] MEDS ORDERED: PROPOFOL/EMULSION 500 MG/50 ML BOTTLE IV ONE (14:00)
[2018-04-27] MEDS ORDERED: ROCURONIUM 50 MG/5 ML VIAL ONE (14:02)
[2018-04-27] MEDS ORDERED: PHENYLEPHRINE HCL 100 MCG/ML SYR ONE ×2 (14:39→14:40)
[2018-04-27] MEDS ORDERED: ePHEDrine SULFATE 25 MG/5 ML SYR ONE (15:12)
[2018-04-27] MEDS ORDERED: PROTAMINE SULFATE 50 MG/5 ML VIAL IVP ONE (15:32)
[2018-04-27] MEDS ORDERED: DESFLURANE 240 ML BOTTLE IH ONE (15:34)
[2018-04-27] MEDS ORDERED: SUGAMMADEX SODIUM 200 MG/2 ML VIAL IVP ONE (15:38)
--- NOTE | 2018-04-27 15:47 | EPPROC ---
Electrophysiology Procedure Note: ELECTROPHYSIOLOGIC STUDY AND BALLOON-CATHETER MEDIATED CRYOABLATION FOR PAROXYSMAL ATRIAL FIBRILLATION Procedures performed: 82107-44 EP evaluation with RA/RV/LA pace/record, with arrhythmia induction 46020-43 EP evaluation with RA/RV pace record, insert/reposition catheter, with arrhythmia induction 39216 Atrial fibrillation ablation Intracardiac echocardiogram Transseptal puncture Fluoroscopy INDICATION: Paroxysmal atrial fibrillation PROCEDURE: The patient arrived in the Electrophysiology Laboratory in the fasting state. The right groin, left groin and right infraclavicular area were prepped and draped in the usual sterile fashion. Anesthesiologist administered general anesthesia Dr. Miguel Adames . All catheters were placed percutaneously using the Seldinger technique and advanced into position under fluoroscopic guidance. One #7 Tunisian deflectable octapolar electrode catheter was placed in the His-bundle position via the left femoral vein (2mm spacing, IVC electrode for unipolar recordings). This catheter was placed in the coronary sinus after transseptal puncture and later placed in the SVC-R subclavian vein junction to pace the right phrenic nerve during right pulmonary vein ablation. One #8 Tunisian AcuNaV ultrasound catheter was placed in the left femoral vein and advanced into the right atrium. Programmed stimulation was performed from the right atrium, left atrium (CS) and right ventricle. There was no evidence of AV accessory pathway. Intracardiac echo evaluation of the left atrium and pulmonary veins was performed. Baseline ACT was drawn and heparin bolus was administered and heparin drip was started prior to transseptal puncture. ACT was checked every 15 minutes and maintained in the range of 350-400 seconds. One 14Fr short sheath was placed in the right femoral vein. One 8Fr SL1 sheath was advanced into the right atrium via the 14Fr short sheath. Transseptal puncture was performed under intracardiac ultrasound, fluoroscopic and hemodynamic guidance placing the sheath into the left atrium. Lincoln RF needle ( C0 curve) was used. The mean left atrial pressure was 9 mmHg. Pulmonary vein angiogram was done using SL1 sheath. CT angiography of pulmonary veins was done previously. There were distinct LSPV, LIPV, RSPV and RIPV. The SL1 sheath was exchanged for a Medtronic Flexcath sheath using an Amplatz stiff guide wire. A 28 mm Cryoballoon catheter with a 20 mm Achieve catheter was placed via the sheath into the left atrium. Intracardiac ultrasound and PV angiograms were used to assist in placing the mapping catheter at the antrum of the pulmonary veins. All pulmonary veins were isolated successfully using cryoballoon ablation using freeze/thaw/freeze cycles at 2-3-minute intervals, with good [id number] of isolation. Coumadin ridge/Ligament of Giovanni region was ablated. Pre and post pulmonary vein recordings were measured on the spiral Achieve catheter to ensure complete pulmonary vein isolation. During the right-sided ablation, phrenic nerve pacing was performed to assess the phrenic nerve strength ( manually and with ICE visualization of liver movement during phrenic capture) and the phrenic nerve was intact throughout the right-sided ablation and at the end of the procedure. An esophageal temperature probe (12 electrode, Circa) was placed by the anesthesiologist at the beginning of the procedure. Esophageal temperature was monitored continuously and cryoablation was interrupted if esophageal temperature was <15 C. Cryoapplications 4 total cryoablation time 720 s. ICE imaging post ablation was consistent with pre ablation imaging with no changes noted, moreover there was no left atrial/left ventricular thrombus and no pericardial effusion. The catheters were withdrawn. Protamine was given. Venous vascular access sheaths were removed in the EP lab after placing subcutaneous pursestring suture. The patient was recovered from anesthesia. There were no complications. The patient was arousable and moving all four extremities at the end of the procedure. CONCLUSIONS: 1. Paroxsymal atrial fibrillation. 2. Successful pulmonary vein isolation procedure (left and right pulmonary vein antrum) using cryoballoon ablation. 3. No apparent complications. Patient Problems: Problems Problem Status Onset Perirectal abscess Acute Atrial fibrillation Acute
--- NOTE | 2018-04-27 15:51 | CPEKG ---
Test Reason : OPEN Blood Pressure : / mmHG Vent. Rate : 123 BPM Atrial Rate : 130 BPM P-R Int : 129 ms QRS Dur : 093 ms QT Int : 349 ms P-R-T Axes : -75 -23 064 degrees QTc Int : 500 ms Atrial fibrillation Ventricular premature complex Borderline left axis deviation Borderline prolonged QT interval Confirmed by Tahir He ([id number]) on 04/27/2018 3:50:36 PM Referred By: Tahir He Confirmed By:Tahir He
[2018-04-27] MEDS ORDERED: ZOLPIDEM TARTRATE 5 MG TAB PO PRN (15:52)
[2018-04-27] MEDS ORDERED: KETOROLAC 15 MG/1 ML SDV IVP PRN (16:30)
[2018-04-27] MEDS: APIXABAN 5 MG TAB PO SCH (22:05)
[2018-04-28 07:20] LABS: PLATELET COUNT 100 10^3/uL (150-400)
[2018-04-28] MEDS ORDERED: CHOLECALCIFEROL VIT D3 1,000 UNITS TAB PO SCH (09:00)
[2018-04-28] MEDS ORDERED: IRBESARTAN 150 MG TAB PO SCH (09:00)
[2018-04-28] MEDS ORDERED: MULTIVITAMINS W-MINERALS 1 EACH TAB PO SCH (09:00)
[2018-04-28] MEDS ORDERED: OMEGA-3 FATTY ACIDS 1,000 MG CAP PO SCH (09:00)
[2018-04-28] MEDS ORDERED: Herbals/Supplements -Info Only PO SCH (09:00)
[2018-04-28] MEDS ORDERED: ALLOPURINOL 300 MG TAB PO SCH (09:00)
[2018-04-28] MEDS ORDERED: COLCHICINE 0.6 MG CAP/TAB PO SCH (09:00)
[2018-04-28] MEDS ORDERED: PANTOPRAZOLE SODIUM 40 MG TAB PO SCH (09:00)
[2018-04-28] MEDS ORDERED: GLUCOSAMINE SULF 500 MG CAP PO SCH (09:00)
[2018-04-28] MEDS ORDERED: amLODIPine BESYLATE 5 MG TAB PO SCH (09:00)
[2018-04-28] MEDS: APIXABAN 5 MG TAB PO SCH (09:05)
[2018-04-28 11:26] VITALS: BP 109/68
--- NOTE | 2018-04-28 11:45 | CPEKG ---
Test Reason : OPEN Blood Pressure : / mmHG Vent. Rate : 072 BPM Atrial Rate : 076 BPM P-R Int : 185 ms QRS Dur : 094 ms QT Int : 402 ms P-R-T Axes : 066 -25 031 degrees QTc Int : 440 ms Sinus rhythm Atrial premature complexes Borderline left axis deviation Confirmed by Tahir He ([id number]) on 04/28/2018 11:45:03 AM Referred By: Tahir He Confirmed By:Tahir He
--- NOTE | 2018-04-28 12:06 | ECHO ---
[email or web address] [address] [address] Main: [phone] Fax: Transthoracic Echocardiogram Name: BRANDY TYLER MR#: [id number] Study Date: 04/28/2018 Study Time: 09:04 AM Date of : 1940 Age: 77 year(s) Height: 182.9 cm (72 in.) Weight: 83.46 kg (184 lb.) BSA: 2.06 m2 Gender: Male Examination: Echo Indication: F/U Post EP Study Image Quality: Adequate Contrast: Requested by: Omar Sigala BP: 141 mmHg/80 mmHg Heart Rate: Rhythm: Indication: F/U Post EP Study Procedure Staff Scrap Drop Crane Operator: Jennifer Bates RDCS Reading Physician: Lg Abreu MD Requesting Provider: Conclusions: Normal size left ventricle. Mild concentric LV hypertrophy. Normal global systolic LV function. EF is 61 %. No regional wall motion abnormality. The left atrium is mildly dilated. Mild mitral valve regurgitation is present. Mild to moderate aortic valve regurgitation. Calcification of the left coronary cusp. Mild tricuspid regurgitation is present. The pulmonary artery pressure is normal. Measurements: Chambers Valvular Assessment AV/MV Valvular Assessment TV/PV Normal Normal Normal Name Value Range Name Value Range Name Value Range Ao Irina (2D): 2.8 cm (1.4 cm-2.6 AV Vmax: 1.33 m/s (1 m/s-1.7 TR Vmax: 2.48 mm/s ( - ) cm) m/s) TR PGmax: 25 mmHg ( - ) IVSd (2D): 1.2 cm (0.6 cm-1.1 AV maxP mmHg ( - ) syst. PAP: 30 mmHg ( - ) cm) AV meanP mmHg ( - ) PV Vmax: 1.00 m/s (0.6 m/s-0.9 LVDd (2D): 4.8 cm (4.2 cm-5.9 MYCHAL (VTI): 2.1 cm ( - ) m/s) cm) MV E Vmax: 0.62 m/s ( - ) PV PGmax: 4 mmHg ( - ) LVDs (2D): 3.6 cm (2.1 cm-4 MV A Vmax: 0.54 m/s ( - ) cm) MV E/A: 1.15 ( - ) LVPWd (2D): 1.1 cm (0.6 cm-1 cm) MV PHT: 0.058 s ( - ) LVOTd 2.0 cm 2.0 cm mm MVA (PHT): 3.8 s ( - ) LVEF (BP): 61 % (>=55 %) RVDd(2D): 3.5 cm (1.9 cm-3.8 cmmm) Patient: BRANDY TYLER Study Date: 04/28/2018 Page 1 of 2 09:04 AM Continued Measurements: Chambers Valvular Assessment AV/MV Valvular Assessment TV/PV Name Value Name Value Name Value LADs: 3.9 cm MV DecTime: 194 m/s CVP (est.): 5 mmHg LADs Lon.1 cm MV E' Septal: 0.06 m/s LA Area: 23.8 cm2 MV E/E' Septal: 10.30 LA Volume: 62 ml MV E/E' Lateral: 6.10 LA Volume Index: 30.1 ml/m2 RA Area: 19.8 cm2 Additional Vessels Name Value Ao Ascendin.6 cm Inferior Vena Cava: 1.6 cm Findings: Left Ventricle: Normal size left ventricle. Mild concentric LV hypertrophy. Normal global systolic LV function. EF is 61 %. No regional wall motion abnormality. Normal diastolic LV function. Right Ventricle: Normal size right ventricle. Normal RV function. Left Atrium: The left atrium is mildly dilated. Right Atrium: The right atrium is normal in size. Mitral Valve: The mitral valve is normal in appearance and function. Mild mitral valve regurgitation is present. No mitral stenosis is present. Aortic Valve: The aortic valve is tri-leaflet. Mild to moderate aortic valve regurgitation. No aortic valve stenosis is present. Calcification of the left coronary cusp. Tricuspid Valve: The tricuspid valve is normal in appearance and function. Mild tricuspid regurgitation is present. The pulmonary artery pressure is normal. Right ventricular systolic pressure measures 30mmHg. Pulmonic Valve: The pulmonic valve is normal in appearance and function. Mild pulmonic valve regurgitation is noted. Aorta: The aorta is normal. Normal size aortic root measuring 2.8 cm. Normal size ascending aorta measuring 3.6 cm. IVC: The IVC is normal sized. Pericardium: No pericardial effusion. (No Signature Object) Patient: BRANDY TYLER Study Date: 04/28/2018 Page 2 of 2 09:04 AM [id number]
--- NOTE | 2018-04-28 18:01 | GDS ---
[f rep st] DISCHARGE SUMMARY SUPERVISING FAMILY SERVICE AIDE: Tahir He MD ADMISSION DIAGNOSIS: Paroxysmal atrial fibrillation. DISCHARGE DIAGNOSIS: Paroxysmal atrial fibrillation, status post cryoballoon pulmonary vein isolatio n. PROCEDURES PERFORMED DURING HOSPITALIZATION: 1. Electrocardiogram. 2. Echocardiogram. 3. Electrophysiology study. 4. Cryoballoon pulmonary vein isolation for atrial fibrillation. HOSPITAL COURSE: The patient presented 04/27/2018, for atrial fibrillation ablation in the setting o f increasingly frequent and symptomatic episodes of paroxysmal atrial fibrillation. He underwent suc cessful balloon catheter mediated cryoballoon ablation with Dr. Tahir He without any intra-procedur e complications. He has done very well in the post procedure setting and he has been up ambulating a round his room this morning without issue. He is appropriate and stable for discharge home at this [facility]. PHYSICAL EXAMINATION: GENERAL: Alert and oriented x4, in no apparent distress. VITAL SIGNS: Blood pressure 109/68, heart rate 75, respiratory rate 18, oxygen 95% on room air, temp is 36.8 degrees Ce lsius. RESPIRATORY: Lungs are clear to auscultation without adventitious breath sounds. CARDIAC: Normal S1, S2. No S3, S4. Rhythm is regular. ABDOMEN: Normoactive bowel sounds times all 4 quadra nts. No masses or tenderness. Abdomen is soft, nontender. SKIN: Bally, warm, dry without cyanosis, clubbing, or peripheral edema. EXTREMITIES: Bilateral pursestring sutures removed intact without e vidence of hematoma, redness, oozing, swelling, or warmth. Mild ecchymosis to the right groin. Puls es are 2+ bilaterally. No edema. LABORATORY STUDIES: Drawn today: CBC is stable compared to preprocedure. BMP stable compared to pr eprocedure with a creatinine of 1.5. Troponin 12.3. Elevated troponin is to be expected in the post procedure setting. PROCEDURES: 1. Electrophysiology study and atrial fibrillation ablation as mentioned above. 2. Echocardiogram completed this morning demonstrates normal systolic function without new wall jewel on abnormality, mild mitral valve regurgitation, [id number] aortic valve regurgitation, mild tr icuspid regurgitation, and normal pulmonary arterial pressures. 3. Electrocardiogram done this morning demonstrates normal sinus rhythm, without new WI or ST-T wave interval abnormalities. DISCHARGE DISPOSITION: Patient will be discharged home in stable condition. He is under activity re strictions as below. DISCHARGE MEDICATIONS: Please see discharge medication reconciliation sheet for full details. Odalys leonard note, the patient has been restarted on his Eliquis 6 hours post-procedure and he will also continu e to take his omeprazole for 6 weeks post procedure. He understands that he may not stop his oral an ticoagulant for any reason within the first 3 months after his ablation. DISCHARGE INSTRUCTIONS: Post-atrial fibrillation ablation instructions reviewed with patient and his in detail. We discussed activity restrictions, including lifting no more than 10 pounds and av oidance of submerged bathing for 10 days. He will get up and walk around every 45 minutes for 45 day s. He will avoid unpressurized air travel or scuba diving for the next 6 months. He will present to our clinic for an echocardiogram prior to engaging in either of these activities. We also reviewed bleeding precautions, medication compliance, monitoring for signs and symptoms of infection, monitori ng for atrial esophageal fistula, and monitoring for sustained arrhythmia. At the time of discharge, patient and his verbalized understanding regarding all discharge instructions without any quest ions or concerns. He has a followup visit scheduled in 3 weeks and he will contact the clinic with a ny new or concerning symptoms prior to his upcoming visit. TIME SPENT ON DISCHARGE: Greater than 30 minutes. /[id number]/MODL
== END 2018-04-28 12:35 | disposition home or self-care (01) ==
LOC: FCATH 11:06 → F2N 15:50
PROVIDERS: ADMIT Internal Medicine Cardiovascular Disease; ATTEND Internal Medicine Cardiovascular Disease
DX: I48.0 Paroxysmal atrial fibrillation (principal)
CPT/HCPCS: 93005; 93306; 93613; 93656; 93662; C1730; C1731; C1732; C1733; C1759; C1766; C1893; J1644; J1885; J2370; J2704; J2720; J3010; Q9967

== ENCOUNTER → 2018-05-03 | Day surgery (SDC) | payer OTHER ==
[~2018-05-03] MED LIST changes: +ATROPINE SULFATE 1 MG/10 ML SYR IVP ONE; +BENZOCAINE UNIT DOSE SPRAY HURRICAINE MM ONE; +ETOMIDATE 20 MG/10 ML VIAL IV ONE; -IOPAMIDOL (ISOVUE 370) 100 ML BTL IV ONE; +MIDAZOLAM 2 MG/2 ML VIAL IVP ONE; +NS 500 ML IV ONE; +PROPOFOL 200 MG/20 ML VIAL ONE; +fentaNYL 100 MCG/2 ML INJ IVP ONE
[2018-05-03 09:35] LABS: INR 1.07 (0.83-1.16); PROTIME(PATIENT) 14.1 SEC (12.0-15.0)
--- NOTE | 2018-05-03 10:55 | PDANEPAE ---
ANE History of Present Illness here for KEERTHI/CV ANE Past Medical History - Cardiovascular History Hx Hypertension: Yes Hx Arrhythmias: Yes Hx Chest Pain: No Hx Coronary Artery / Peripheral Vascular Disease: No Hx CHF / Valvular Disease: No Hx Palpitations: Yes Cardiovascular History Comment: AFIB AND H/O MULTIPLE CARDIOVERSIONS - Pulmonary History Hx COPD: No Hx Asthma/Reactive Airway Disease: No Hx Recent Upper Respiratory Infection: No Hx Oxygen in Use at Home: No Hx Sleep Apnea: No - Neurologic History Hx Cerebrovascular Accident: No Hx Seizures: No Hx Dementia: No - Endocrine History Hx Diabetes: No - Renal History Hx Renal Disorders: Yes Renal History Comment: BLADDER CA. HX OF BLADDER INFECTION LEADING TO SEPSIS- CURRENTLY ON ABX - Liver History Hx Hepatic Disorders: No - Neurological & Psychiatric Hx Hx Neurological and Psychiatric Disorders: No - Cancer History Hx Cancer: Yes Cancer History Comment: BLADDER CA IN 2010 - Congenital Disorder History Hx Congenital Disorders: No - GI History Hx Gastrointestinal Disorders: Yes Gastrointestinal History Comment: DIVERTICULOSIS - Other Health History Other Health History: PICC LINE IN [place] CURRENTLY RECIEVING IV ABX - Chronic Pain History Chronic Pain: No - Surgical History Prior Surgeries: CYSTOSCOPY 2010. CARDIOVERSION 2010. CARDIOVERSION JULY 2013. LAP TRE 02/2012 ANE Review of Systems Review of systems is: negative Review of Systems: - Exercise capacity Exercise capacity: >=4 METS ANE Patient History - Allergies Allergies/Adverse Reactions: lisinopril Allergy (Verified 02/22/18 11:50) Itching nitrofurantoin [From Macrobid] Allergy (Verified 02/22/18 11:50) GI Upset Penicillins Allergy (Verified 02/22/18 11:50) GI Upset/Fever - Home Medications Home medications: home medication list seen and reviewed Home Medications: amLODIPine BESYLATE [Norvasc 5 mg (*)] 5 mg PO DAILY #0 07/27/16 [Last Taken 08:00] Apixaban [Eliquis] 5 mg PO BID #0 12/22/16 [Last Taken 05/03/18 06:00] Cholecalciferol Vit D3 [Vitamin D3 (*)] 1,000 units PO DAILY 08/12/17 [Last Taken 04/24/18 08:00] Multivitamins W-Minerals [Thera M Plus Tablet (*)] 1 each PO DAILY 08/12/17 [ Last Taken 05/02/18 08:00] Zolpidem Tartrate [Ambien 5MG (*)] 5 mg PO HS PRN 08/12/17 [Last Taken 04/26/18 21:00] Irbesartan [Avapro 150 mg (*)] 150 mg PO DAILY 12/21/17 [Last Taken 05/02/18 08: 00] Allopurinol [Allopurinol 300 MG (RX)] 300 mg PO DAILY 02/16/18 [Last Taken 05/02 08:00] Colchicine [Colchicine (*)] 0.6 mg PO DAILY 02/16/18 [Last Taken 05/02/18 08:00] Glucosamine Sulfate [Glucosamine Sulfate 500 MG (*)] 500 mg PO DAILY 02/16/18 [ Last Taken 04/24/18 08:00] Herbals/Supplements -Info Only 1 ea PO DAILY 02/16/18 [Last Taken 04/24/18 08:00 ] [place]-3 Fatty Acids [Fish Oil 1000 mg (*)] 1,000 mg PO DAILY 02/16/18 [Last Taken 05/02/18 08:00] Omeprazole 20 mg PO DAILY 02/16/18 [Last Taken 05/02/18 19:00] - NPO status NPO Status: no food or drink >8 hours - Smoking Hx Smoking Status: Former smoker - Family Anes Hx Family Hx Anesthesia Complications: NONE ANE Labs/Vital Signs - Labs Result Diagrams: 05/03/18 08:40 - Vital Signs Vital Signs: reviewed preoperatively; see RN documention for details Height: 185.42 cm Weight: 83.915 kg ANE Physical Exam - Airway Neck exam: FROM Mallampati Score: Class 1 Mouth exam: normal dental/mouth exam - Pulmonary Pulmonary: no respiratory distress - Cardiovascular Cardiovascular: regular rate and rhythym - ASA Status ASA Status: III ANE Anesthesia Plan Anesthesia Plan: GA with mask
--- NOTE | 2018-05-03 11:51 | PDTEE1 ---
KEERTHI Cardioversion Procedure Procedure: electrical cardioversion, transesophageal echo Indications: atrial fibrillation Consent: signed and in chart Procedural Details: PROCEDURE: Elective KEERTHI and DC cardioversion. DATE OF PROCEDURE: 05/03/2018 COMPLICATIONS: None OCCUPATIONAL HEALTH AND SAFETY OFFICER: Cornel Morales MD INDICATION AND APPROPRIATE USE CRITERIA: PERSISTENT ATRIAL FIBRILLATION PROCEDURE IN DETAIL: After informed consent was obtained and n.p.o. status was confirmed, the oropharynx was anesthetized with 1% cetacaine topical solution. The patient was given 70mg of Propofol intravenously for sedation prior to the KEERTHI. The KEERTHI probe was advanced in to the patient's esophagus and the ultrasound revealed no evidence of left atrial clot or thrombus. (Please see the full report under separate cover.) We proceeded with elective DC cardioversion, the pads were placed in the anterior and posterior position. The patient was given an additional 30mg of Propofol for deep sedation prior to being cardioverted. There was 300 J of biphasic synchronized counter shock delivered. The patient was successfully returned to normal sinus rhythm with occasional PACs and intermittent junctional escape. FINAL IMPRESSION: Successful KEERTHI guided elective DC cardioversion without immediate complication. (Please see KEERTHI report on [email or web address] for complete details of KEERTHI findings.) The patient will remain on Eliquis 5mg PO BID for at least 30 days post procedure. The patient is to avoid caffeine, alcohol and strenuous exercise for the next 3 weeks. Synchronized cardioversion attempt #1: 300J Results: normal sinus rhythm Conclusions: successful KEERTHI cardioversion Patient Problems: Problems Problem Status Onset Atrial fibrillation Acute Perirectal abscess Acute
--- NOTE | 2018-05-03 12:48 | CPEKG ---
Test Reason : OPEN Blood Pressure : / mmHG Vent. Rate : 146 BPM Atrial Rate : 233 BPM P-R Int : 131 ms QRS Dur : 087 ms QT Int : 297 ms P-R-T Axes : -73 -25 116 degrees QTc Int : 463 ms Atrial fibrillation with rapid V-rate Borderline left axis deviation Nonspecific T abnormalities, lateral leads Confirmed by Dirk Oconnor ([id number]) on 05/03/2018 12:48:18 PM Referred By: Cornel Morales Confirmed By:Dirk Oconnor
--- NOTE | 2018-05-03 12:49 | CPEKG ---
Test Reason : OPEN Blood Pressure : / mmHG Vent. Rate : 090 BPM Atrial Rate : 091 BPM P-R Int : 180 ms QRS Dur : 095 ms QT Int : 364 ms P-R-T Axes : 054 -27 098 degrees QTc Int : 446 ms Sinus rhythm Multiple premature complexes, vent & supraven Borderline left axis deviation Confirmed by Dirk Oconnor ([id number]) on 05/03/2018 12:49:26 PM Referred By: Cornel Morales Confirmed By:Dirk Oconnor
--- NOTE | 2018-05-03 17:57 | ECHO ---
[email or web address] [address] [address] Main: [phone] Fax: Transesophageal Echocardiography Name: BRANDY TYLER MR#: [id number] Study Date: 05/03/2018 Study Time: 10:14 AM Date of : 1940 Age: 77 year(s) Height: 182.9 cm (72 in.) Weight: 83.46 kg (184 lb.) BSA: 2.06 m2 Gender: Male Examination: KEERTHI Indication: Atrial Fibrillation Image Quality: Contrast: Requested by: Cornel Morales Heart Rate: Rhythm: BP: / Procedure Staff Risk Modeler: Charu Tate [facility] Reading Physician: Cornel Morales MD Requesting Provider: KEERTHI Exam Details Conclusions: The ejection fraction is estimated to be 45 %. Spontaneous contrast in the left atrium. Transseptal puncture visualized with left to right shunting from EP study on 04/27/18.. No thrombus in left appendage. The mitral valve is normal in appearance. Mild mitral valve regurgitation is present. The aortic valve is tri-leaflet. Mild to moderate aortic valve regurgitation. The tricuspid valve appears normal. EF is reduced from previous study of 5 days ago when patient was in normal sinus rhythm.. We proceeded with elective and successful cardioversion. Measurements: Chambers Valvular Assessment AV/MV Valvular Assessment TV/PV Normal Normal Normal Name Value Range Name Value Range Name Value Range EF Range: 45 % Additional Measurements: Findings: The ejection fraction is estimated to be 45 %. Left Atrium: Patient: BRANDY TYLER Study Date: 05/03/2018 Page 1 of 2 10:14 AM Spontaneous contrast in the left atrium. Transseptal puncture visualized with left to right shunting from EP study on 04/27/18.. Left Atrial Appendage: No thrombus in left appendage. Mitral Valve: The mitral valve is normal in appearance. Mild mitral valve regurgitation is present. Aortic Valve: The aortic valve is tri-leaflet. Mild to moderate aortic valve regurgitation. Tricuspid Valve: The tricuspid valve appears normal. Exam Comments: EF is reduced from previous study of 5 days ago when patient was in normal sinus rhythm.. l1n (No Signature Object) Patient: BRANDY TYLER Study Date: 05/03/2018 Page 2 of 2 10:14 AM [id number]
== END | disposition home or self-care (01) ==
LOC: FCATH 08:26
PROVIDERS: ATTEND Internal Medicine Cardiovascular Disease
DX: I48.1 Persistent atrial fibrillation (principal); N18.3 Chronic kidney disease, stage 3 (moderate); I12.9 Hypertensive chronic kidney disease with stage 1 through stage 4 chronic kidney disease, or unspecified chronic kidney disease; Z86.711 Personal history of pulmonary embolism; I27.20 Pulmonary hypertension, unspecified; Z85.51 Personal history of malignant neoplasm of bladder; Z79.01 Long term (current) use of anticoagulants; Z86.19 Personal history of other infectious and parasitic diseases
CPT/HCPCS: J0461; J2250; J2704; J3010

== ENCOUNTER 2018-05-06 07:05 | Day surgery (SDC) | payer OTHER ==
[2018-05-06] MEDS ORDERED: MIDAZOLAM 2 MG/2 ML VIAL IVP ONE (07:07)
[2018-05-06] MEDS ORDERED: fentaNYL 100 MCG/2 ML INJ IVP ONE (07:07)
[2018-05-06] MEDS ORDERED: NS 500 ML IV ONE (07:07)
[2018-05-06] MEDS ORDERED: ATROPINE SULFATE 1 MG/10 ML SYR IVP ONE (07:07)
--- NOTE | 2018-05-06 07:44 | PDANEPAE ---
ANE Past Medical History - Cardiovascular History Hx Hypertension: Yes Hx Arrhythmias: Yes Hx Chest Pain: No Hx Coronary Artery / Peripheral Vascular Disease: No Hx CHF / Valvular Disease: No Hx Palpitations: Yes Cardiovascular History Comment: AFIB AND H/O MULTIPLE CARDIOVERSIONS - Pulmonary History Hx COPD: No Hx Asthma/Reactive Airway Disease: No Hx Recent Upper Respiratory Infection: No Hx Oxygen in Use at Home: No Hx Sleep Apnea: No - Neurologic History Hx Cerebrovascular Accident: No Hx Seizures: No Hx Dementia: No - Endocrine History Hx Diabetes: No - Renal History Hx Renal Disorders: Yes Renal History Comment: BLADDER CA. HX OF BLADDER INFECTION LEADING TO SEPSIS- CURRENTLY ON ABX - Liver History Hx Hepatic Disorders: No - Neurological & Psychiatric Hx Hx Neurological and Psychiatric Disorders: No - Cancer History Hx Cancer: Yes Cancer History Comment: BLADDER CA IN 2010 - Congenital Disorder History Hx Congenital Disorders: No - GI History Hx Gastrointestinal Disorders: Yes Gastrointestinal History Comment: DIVERTICULOSIS - Other Health History Other Health History: PICC LINE IN [place] CURRENTLY RECIEVING IV ABX - Chronic Pain History Chronic Pain: No - Surgical History Prior Surgeries: CYSTOSCOPY 2010. CARDIOVERSION 2010. CARDIOVERSION JULY 2013. LAP TRE 02/2012 ANE Review of Systems Review of Systems: ANE Patient History - Allergies Allergies/Adverse Reactions: lisinopril Allergy (Verified 02/22/18 11:50) Itching nitrofurantoin [From Macrobid] Allergy (Verified 02/22/18 11:50) GI Upset Penicillins Allergy (Verified 02/22/18 11:50) GI Upset/Fever - Home Medications Home Medications: amLODIPine BESYLATE [Norvasc 5 mg (*)] 5 mg PO DAILY #0 07/27/16 [Last Taken 1 Day Ago ~05/05/18] Apixaban [Eliquis] 5 mg PO BID #0 12/22/16 [Last Taken 05/06/18] Cholecalciferol Vit D3 [Vitamin D3 (*)] 1,000 units PO DAILY 08/12/17 [Last Taken 1 Day Ago ~05/05/18] Multivitamins W-Minerals [Thera M Plus Tablet (*)] 1 each PO DAILY 08/12/17 [ Last Taken 1 Day Ago ~05/05/18] Zolpidem Tartrate [Ambien 5MG (*)] 5 mg PO HS PRN 08/12/17 [Last Taken 1 Day Ago ~05/05/18] Irbesartan [Avapro 150 mg (*)] 150 mg PO DAILY 12/21/17 [Last Taken 1 Day Ago ~ 05/05/18] Allopurinol [Allopurinol 300 MG (RX)] 300 mg PO DAILY 02/16/18 [Last Taken 1 Day Ago ~05/05/18] Colchicine [Colchicine (*)] 0.6 mg PO DAILY 02/16/18 [Last Taken 1 Day Ago ~] Glucosamine Sulfate [Glucosamine Sulfate 500 MG (*)] 500 mg PO DAILY 02/16/18 [ Last Taken 1 Day Ago ~05/05/18] Herbals/Supplements -Info Only 1 ea PO DAILY 02/16/18 [Last Taken 1 Day Ago ~] [place]-3 Fatty Acids [Fish Oil 1000 mg (*)] 1,000 mg PO DAILY 02/16/18 [Last Taken 1 Day Ago ~05/05/18] Omeprazole 20 mg PO DAILY 02/16/18 [Last Taken 1 Day Ago ~05/05/18] - Smoking Hx Smoking Status: Former smoker - Family Anes Hx Family Hx Anesthesia Complications: NONE ANE Labs/Vital Signs - Labs Result Diagrams: 05/06/18 07:20 - Vital Signs Height: 182.88 cm Weight: 83.915 kg ANE Physical Exam - Airway Neck exam: FROM Mallampati Score: Class 2 Mouth exam: normal dental/mouth exam - Pulmonary Pulmonary: no respiratory distress, no rales or rhonchi, clear to auscultation - Cardiovascular Cardiovascular: no murmur, rub, or gallop, irregularly irregular - ASA Status ASA Status: III ANE Anesthesia Plan Anesthesia Plan: GA with mask Total IV Anesthesia: Yes
[2018-05-06 07:45] LABS: INR 1.06 (0.83-1.16)
[2018-05-06] MEDS ORDERED: PROPOFOL/EMULSION 500 MG/50 ML BOTTLE IV ONE (07:47)
--- NOTE | 2018-05-06 08:08 | CPEKG ---
Test Reason : OPEN Blood Pressure : / mmHG Vent. Rate : 117 BPM Atrial Rate : 183 BPM P-R Int : 054 ms QRS Dur : 097 ms QT Int : 339 ms P-R-T Axes : 000 -22 087 degrees QTc Int : 473 ms Atrial fibrillation Borderline left axis deviation Confirmed by Dirk Oconnor ([id number]) on 05/06/2018 8:07:44 AM Referred By: Tahir He Confirmed By:Dirk Oconnor
--- NOTE | 2018-05-06 08:26 | PDGENHP ---
History & Physical Chief Complaint: afib Relevant Physical Exam: s1s2 irreg cta ao3 Cardiorespiratory Assessment: for cv
--- NOTE | 2018-05-06 08:29 | PDCARD ---
Cardioversion Procedure Procedure: electrical cardioversion Indications: atrial fibrillation Consent: signed and in chart Anticoagulation: eliquis Procedural Details: Pads were placed in anterior-posterior position. Synchronized cardioversion attempt #1: 200J Results: normal sinus rhythm Conclusions: successful cardioversion Patient Problems: Problems Problem Status Onset Atrial fibrillation Acute Perirectal abscess Acute
--- NOTE | 2018-05-06 14:58 | CPEKG ---
Test Reason : OPEN Blood Pressure : / mmHG Vent. Rate : 071 BPM Atrial Rate : 071 BPM P-R Int : 192 ms QRS Dur : 100 ms QT Int : 427 ms P-R-T Axes : 061 -32 034 degrees QTc Int : 465 ms Sinus rhythm Left axis deviation Confirmed by Dirk Oconnor ([id number]) on 05/06/2018 2:57:44 PM Referred By: Tahir He Confirmed By:Dirk Oconnor
== END 2018-05-06 09:55 | disposition home or self-care (01) ==
LOC: FCATH 07:05
PROVIDERS: ATTEND Internal Medicine Cardiovascular Disease
PROC: 5A2204Z Restoration of Cardiac Rhythm, Single (ICD-10-PCS; principal; 2018-05-06)
DX: I48.91 Unspecified atrial fibrillation (principal); N18.3 Chronic kidney disease, stage 3 (moderate); I12.9 Hypertensive chronic kidney disease with stage 1 through stage 4 chronic kidney disease, or unspecified chronic kidney disease; Z86.711 Personal history of pulmonary embolism; Z85.51 Personal history of malignant neoplasm of bladder; Z86.19 Personal history of other infectious and parasitic diseases; Z87.891 Personal history of nicotine dependence
CPT/HCPCS: J0461; J2704

== ENCOUNTER 2018-05-31 12:21 | Emergency (ER) | payer OTHER ==
--- NOTE | 2018-05-31 12:50 | EDPHY ---
H & P Stated Complaint: Dull body pain x2wks following ablation. R should, L knee/leg/ hand Time Seen by Provider: 05/31/18 12:40 HPI/ROS: CHIEF COMPLAINT: Body aches HISTORY OF PRESENT ILLNESS: Patient is a 77-year-old man with a history of atrial fibrillation on Eliquis. On April 27 he had a cardiac ablation with Dr. He. He was started on amiodarone and colchicine at the time. But a week later he developed muscle aches in bilateral hamstring region. Dr. He discontinued his colchicine. His symptoms continued to worsen and a week later Dr. He discontinued his amiodarone. For the last 2 weeks he has continued to have pain and now is also having soreness in his right shoulder and left knee. No erythema. Normal movement and weight-bearing. He states that he particularly has pain in the morning and stiffness but throughout the day it is able to loosen up and he feels much better. No difficulty breathing. No chest pain. No nausea vomiting or diarrhea. His pain is controlled with Tylenol. He has an appointment with Dr. He tomorrow but thought that he would come here to get checked out today. Severity: Moderate Modifying factors: Improved with Tylenol REVIEW OF SYSTEMS: Constitutional: denies: chills, fever, recent illness, recent injury EENTM: denies: blurred vision, double vision, nose congestion Respiratory: denies: cough, shortness of breath Cardiac: denies: chest pain, irregular heart rate, lightheadedness, palpitations Gastrointestinal/Abdominal: denies: abdominal pain, diarrhea, nausea, vomiting, blood streaked stools Genitourinary: denies: dysuria, frequency, hematuria, pain Musculoskeletal: See HPI Skin: denies: lesions, rash, jaundice, bruising Neurological: denies: headache, numbness, paresthesia, tingling, dizziness, weakness Hematologic/Lymphatic: denies: blood clots, easy bleeding, easy bruising Immunologic/allergic: denies: HIV/AIDS, transplant 10 systems reviewed and negative except as noted EXAM: GENERAL: Well-appearing, well-nourished and in no acute distress. HEAD: Atraumatic, normocephalic. EYES: Pupils equal round and reactive to light, extraocular movements intact, sclera anicteric, conjunctiva are normal. ENT: TMs normal, nares patent, oropharynx clear without exudates. Moist mucous membranes. NECK: Normal range of motion, supple without lymphadenopathy or JVD. LUNGS: Breath sounds clear to auscultation bilaterally and equal. No wheezes rales or rhonchi. HEART: Regular rate and rhythm without murmurs, rubs or gallops. ABDOMEN: Soft, nontender, normoactive bowel sounds. No guarding, no rebound. No masses appreciated. BACK: No CVA tenderness, no spinal tenderness, step-offs or deformities EXTREMITIES: Normal range of motion, no pitting or edema. No clubbing or cyanosis. NEUROLOGICAL: Cranial nerves II through XII grossly intact. Normal speech, normal gait. 5/5 strength, normal movement in all extremities, normal sensation , normal reflexes PSYCH: Normal mood, normal affect. SKIN: Warm, dry, normal turgor, no visible rashes or lesions. Source: Patient Exam Limitations: No limitations - Personal History Current Tetanus/Diphtheria Vaccine: Yes - Medical/Surgical History Hx Asthma: No Hx Chronic Respiratory Disease: No Hx Diabetes: No Hx Cardiac Disease: Yes Hx Renal Disease: No Hx Cirrhosis: No Hx Alcoholism: No Hx HIV/AIDS: No Hx Splenectomy or Spleen Trauma: No Other PMH: afib/bladder cancer/neobladder, gout. pulmonary saddle clot <5 yrs ago - Family History Significant Family History: No pertinent family hx - Social History Smoking Status: Former smoker Alcohol Use: None Constitutional: Initial Vital Signs Temperature (C) 37.2 C 05/31/18 12:27 Heart Rate 88 05/31/18 12:27 Respiratory Rate 18 05/31/18 12:27 Blood Pressure 155/84 H 05/31/18 12:27 O2 Sat (%) 96 05/31/18 12:27 O2 Delivery Mode Room Air Allergies/Adverse Reactions: lisinopril Allergy (Verified 05/31/18 12:27) Itching nitrofurantoin [From Macrobid] Allergy (Verified 05/31/18 12:27) GI Upset Penicillins Allergy (Verified 05/31/18 12:27) GI Upset/Fever Home Medications: Medication Instructions Recorded amLODIPine BESYLATE [Norvasc 5 mg 5 mg PO DAILY #0 07/27/16 (*)] Apixaban [Eliquis] 5 mg PO BID #0 12/22/16 Cholecalciferol Vit D3 [Vitamin D3 1,000 units PO DAILY 08/12/17 (*)] Multivitamins W-Minerals [Thera M 1 each PO DAILY 08/12/17 Plus Tablet (*)] Zolpidem Tartrate [Ambien 5MG (*)] 5 mg PO HS PRN 08/12/17 Irbesartan [Avapro 150 mg (*)] 150 mg PO DAILY 12/21/17 Allopurinol [Allopurinol 300 MG 300 mg PO DAILY 02/16/18 (RX)] Colchicine [Colchicine (*)] 0.6 mg PO DAILY 02/16/18 Glucosamine Sulfate [Glucosamine 500 mg PO DAILY 02/16/18 Sulfate 500 MG (*)] Herbals/Supplements -Info Only 1 ea PO DAILY 02/16/18 [place]-3 Fatty Acids [Fish Oil 1000 1,000 mg PO DAILY 02/16/18 mg (*)] Omeprazole 20 mg PO DAILY 02/16/18 Cephalexin [Keflex] 500 mg PO TID #21 cap 05/31/18 Medical Decision Making - Diagnostics EKG Interpretation: An EKG obtained and was read and documented in trace view. Please see trace view for full reading and report. Sinus rhythm, no acute ischemic changes. ED Course/Re-evaluation: Patient has completely normal neurologic and musculoskeletal examination. No obvious erythema swelling or weakness. He complains of pain and stiffness primarily in the mornings that improves in the evenings. 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 Will check basic lab work and urinalysis to rule out liver kidney abnormalities. Patient's blood work is reassuring. He does have significant findings on urinalysis. The patient has a history of bladder cancer and has a neobladder and states that his urine also appears dirty but is typically treated by his urologist Dr. Ortega. He does have positive nitrates. I suspect that his migrating body aches could possibly be due to this urine infection. He is afebrile. Will start on Keflex. He is allergic to penicillin and nitro friend tone. Will send the urine for cultures. Discussed indications for returning. 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 Differential Diagnosis: Partial list of the Differential diagnosis considered include but were not limited to; arthritis, urinary tract infection, rhabdomyolysis, electrolyte abnormality, sepsis and although unlikely based on the history and physical exam , I also considered septic shock, trauma, autoimmune disease. I discussed these differential diagnoses and the plan with the patient as well as the usual and expected course. The patient understands that the diagnosis is provisional and that in medicine we are not always correct and that further workup is often warranted. Usual and customary warnings were given. All of the patient's questions were answered. The patient was instructed to return to the emergency department should the symptoms at all worsen or return, otherwise to followup with the physician as we discussed. - Data Points Laboratory Results: Laboratory Results 05/31/18 13:05 05/31/18 13:05 05/31/18 05/31/18 05/31/18 13:05 13:05 13:00 WBC 7.39 10^3/uL 10^3/uL (3.80-9.50) RBC 5.09 10^6/uL 10^6/uL (4.40-6.38) Hgb 15.3 g/dL g/dL (13.7-17.5) Hct 46.6 % % (40.0-51.0) MCV 91.6 fL fL (81.5-99.8) MCH 30.1 pg pg (27.9-34.1) MCHC 32.8 g/dL g/dL (32.4-36.7) RDW 13.0 % % (11.5-15.2) Plt Count 160 10^3/uL 10^3/uL (150-400) MPV 11.4 fL fL (8.7-11.7) Neut % (Auto) 73.4 % % (39.3-74.2) Lymph % (Auto) 15.3 % % (15.0-45.0) [place] % (Auto) 9.3 % % (4.5-13.0) Eos % (Auto) 1.1 % % (0.6-7.6) Baso % (Auto) 0.5 % % (0.3-1.7) Nucleat RBC Rel Count 0.0 % % (0.0-0.2) Absolute Neuts (auto) 5.42 10^3/uL 10^3/uL (1.70-6.50) Absolute Lymphs (auto) 1.13 10^3/uL 10^3/uL (1.00-3.00) Absolute Monos (auto) 0.69 10^3/uL 10^3/uL (0.30-0.80) Absolute Eos (auto) 0.08 10^3/uL 10^3/uL (0.03-0.40) Absolute Basos (auto) 0.04 10^3/uL 10^3/uL (0.02-0.10) Absolute Nucleated RBC 0.00 10^3/uL 10^3/uL (0-0.01) Immature Gran % 0.4 % % (0.0-1.1) Immature Gran # 0.03 10^3/uL 10^3/uL (0.00-0.10) Sodium 139 mEq/L mEq/L (135-145) Potassium 4.7 mEq/L mEq/L (3.5-5.2) Chloride 106 mEq/L mEq/L (97-110) Carbon Dioxide 24 mEq/l mEq/l (22-31) Anion Gap 9 mEq/L mEq/L (6-14) BUN 24 mg/dL H mg/dL (7-23) Creatinine 1.1 mg/dL mg/dL (0.7-1.3) Estimated GFR > 60 Glucose 96 mg/dL mg/dL (70-100) Calcium 9.0 mg/dL mg/dL (8.5-10.4) Total Bilirubin 0.9 mg/dL mg/dL (0.1-1.4) Conjugated Bilirubin 0.4 mg/dL mg/dL (0.0-0.5) Unconjugated Bilirubin 0.5 mg/dL mg/dL (0.0-1.1) AST 27 IU/L IU/L (17-59) ALT 26 IU/L IU/L (21-72) Alkaline Phosphatase 82 IU/L IU/L (38-126) Creatine Kinase 49 IU/L IU/L (0-224) Total Protein 7.0 g/dL g/dL (6.3-8.2) Albumin 3.9 g/dL g/dL (3.5-5.0) Urine Color ZENIA Urine Appearance MODERATELY TURBID Urine pH 6.0 (5.0-7.5) Ur Specific [place] 1.011 (1.002-1.030) Urine Protein 2+ H (NEGATIVE) Urine Ketones NEGATIVE (NEGATIVE) Urine Blood 3+ H (NEGATIVE) Urine Nitrate POSITIVE H (NEGATIVE) Urine Bilirubin NEGATIVE (NEGATIVE) Urine Urobilinogen NEGATIVE EU EU (0.2-1.0) Ur Leukocyte Esterase 2+ H (NEGATIVE) Urine RBC 50-182 /hpf H /hpf (0-3) Urine WBC 50-182 /hpf H /hpf (0-3) Ur Epithelial Cells NONE SEEN /lpf /lpf (NONE-1+) Urine Bacteria 4+ /hpf H /hpf (NONE SEEN) Granular Casts 5-15 /lpf /lpf (0-1) Urine Mucus TRACE /lpf /lpf (NONE-1+) Urine Glucose NEGATIVE (NEGATIVE) Medications Given: Discontinued Medications Cephalexin HCl (Keflex) 500 mg PO EDNOW ONE PRN Reason: Protocol Stop: 05/31/18 14:10 Last Admin: 05/31/18 14:19 Dose: 500 mg Departure - Departure Disposition: Home, Routine, Self-Care Clinical Impression: Urinary tract infection Qualifiers: Urinary tract infection type: site unspecified Hematuria presence: without hematuria Qualified Code(s): N39.0 - Urinary tract infection, site not specified Condition: Good Instructions: Cephalexin (By mouth), Urinary Tract Infection in Men (ED) Referrals: Solange Lanza MD [Primary Care Provider] - As per Instructions Tahir He MD [Medical Doctor] - 1 day without fail Prescriptions: Cephalexin [Keflex] 500 mg PO TID #21 cap
--- NOTE | 2018-05-31 13:08 | CPEKG ---
Test Reason : OPEN Blood Pressure : / mmHG Vent. Rate : 087 BPM Atrial Rate : 087 BPM P-R Int : 172 ms QRS Dur : 094 ms QT Int : 368 ms P-R-T Axes : 063 -28 049 degrees QTc Int : 443 ms Sinus rhythm Borderline left axis deviation Confirmed by Afshan Gold ([id number]) on 05/31/2018 1:07:19 PM Referred By: AFSHAN GOLD Confirmed By:Afshan Gold
[2018-05-31 13:19] LABS: PLATELET COUNT 160 10^3/uL (150-400)
[2018-05-31 13:42] LABS: CREATINE KINASE 49 IU/L (0-224)
[2018-05-31] MEDS ORDERED: CEPHALEXIN 500 MG CAP PO ONE (14:09)
[2018-05-31 14:10] VITALS: BP 156/86
== END 2018-05-31 14:27 | disposition home or self-care (01) ==
DX: N39.0 Urinary tract infection, site not specified (principal); I48.91 Unspecified atrial fibrillation; Z79.01 Long term (current) use of anticoagulants

== ENCOUNTER → 2018-06-30 | Outpatient (CLI) | payer OTHER | LOC: BHFA 13:00 | PROVIDERS: ATTEND Internal Medicine Cardiovascular Disease | DX: I48.91 Unspecified atrial fibrillation (principal) ==

== ENCOUNTER → 2018-07-19 | Outpatient (CLI) | payer OTHER | LOC: BHFA 09:00 | PROVIDERS: ATTEND Internal Medicine Cardiovascular Disease | DX: I47.2 Ventricular tachycardia (principal) | CPT/HCPCS: 78452; 93017; A9500 ==